=== PATIENT | female | born 1980 | race Caucasian/White ===

== ENCOUNTER 2017-09-04 21:56 | Inpatient (IN) | payer OTHER ==
[~2017-09-04] VITALS: Ht 152.4 cm; Wt 56.0 kg
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
[2017-09-04 22:48] LABS: ABSOLUTE BASOPHIL COUNT 0 /CUMM (0.0-0.2); ABSOLUTE EOSINOPHIL COUNT 0 /CUMM (0.0-0.7); ABSOLUTE GRANULOCYTE CT 4.5 /CUMM (1.4-6.5); ABSOLUTE LYMPH COUNT 1.9 /CUMM (1.2-3.4); ABSOLUTE MONOCYTE COUNT 0.4 /CUMM (0.10-0.60); BASOPHIL % 0.4 % (0.0-2.0); EOSINOPHIL % 0.3 % (0-5); HEMATOCRIT 37.9 % (37-47); MEAN CORPUSCULAR HGB 32.4 PG (27.0-31.0); MEAN CORPUSCULAR VOLUME 95.4 FL (81.0-99.0); MEAN PLATELET VOLUME 7.1 FL (7.4-10.4); PLATELET COUNT 351 /CUMM (130-400); RBC DISTRIBUTION WIDTH 13.1 % (11.5-14.5); RED BLOOD CELL CT 3.98 /CUMM (4.20-5.40)
[2017-09-04] MEDS ORDERED: FAMOTIDINE20 M1 PO (23:36)
[2017-09-04] MEDS ORDERED: CLONAZEPAM0.5 M2 PO (23:37)
[2017-09-04] MEDS ORDERED: SERTRALINE HCL100 MG PO (23:37)
[2017-09-04] MEDS ORDERED: LATUDA40 M1 PO (23:38)
[2017-09-04] MEDS ORDERED: MIRTAZAPINE15 M2 PO (23:39)
[2017-09-04] MEDS ORDERED: FLUTICASONE PRO16 GM NAS (23:40)
[2017-09-04] MEDS ORDERED: LORATADINE10 M1 PO (23:40)
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
[2017-09-05 17:00] VITALS: BP 129/76
[2017-09-05 18:26] VITALS: BP 129/76
[2017-09-05 19:54] VITALS: BP 128/83
[2017-09-05 19:57] VITALS: BP 128/83
[2017-09-06] VITALS (12 sets, daily range): BP systolic 107–148; BP diastolic 56–87
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
--- NOTE | 2017-09-06 13:25 | History & Physical ---
General Information and HPI MD Statement: I have seen and personally examined YAQUELIN HORVATH and documented this H&P. The patient is a 37 year old F who presented with a patient stated chief complaint of "it's my fault"]. Source of Information: patient, family, old records Exam Limitations: unable to give history History of Present Illness: 37-year-old female is depressed with suicidal ideations apparently has had 17 admissions in the past 2 years and was running out of her clonazepam and did not establish with an outpatient facility discharge in mid July. Her symptoms are back and she needs repeat restart of the medications Allergies/Medications Allergies: Coded Allergies: Sulfa (Sulfonamide Antibiotics) (RASH PER PT 09/04/17) aspirin (VOMIT 09/04/17) ciprofloxacin (From CIPRO) (VOMITTING PER PT 09/04/17) dicyclomine (From BENTYL) (MORE STOMACH CRAMPS PER PT 09/04/17) diphenhydramine (From BENADRYL) ("CRAWLING OUT OF SKIN" 09/04/17) esomeprazole (From NEXIUM) (STOMACH CRAMPS 09/04/17) hydromorphone (From DILAUDID) (VOMIT 09/04/17) hyoscyamine (STOMACH CRAMPS/VOMITING PER PT 09/04/17) metronidazole (From FLAGYL) (VOMITING PER PT 09/04/17) oxycodone (From PERCOCET) (VOMIT 09/04/17) pantoprazole (From PROTONIX) (STOMACH CRAMPS 09/04/17) promethazine (From PHENERGAN) ("CRAWLING OUT OF SKIN" 09/04/17) risperidone (From RISPERDAL) (ANAPHYLASIX 09/04/17) Home Med list Famotidine 20 MG TABLET 2 TAB PO DAILY ACID REFLUX (Reported) Fluticasone Propionate 50 MCG/ACTUATION SPRAY.SUSP 2 SPRAY MELVIN BID ALLERGIES (Reported) Loratadine 10 MG TABLET 1 TAB PO DAILY ALLERGIES (Reported) Lurasidone HCl (Latuda) 40 MG TABLET 1 TAB PO QHS DEPRESSION (Reported) Mirtazapine 15 MG TABLET 1 TAB PO QHS DEPRESSION (Reported) Sertraline HCl 100 MG TABLET 1 TAB PO DAILY DEPRESSION (Reported) Compliance With Home Meds: POOR Past History Travel History Traveled to [place] past 21 day No Medical History Neurological: NONE EENT: allergies, rhinitis Cardiovascular: NONE Respiratory: NONE Gastrointestinal: GERD, irritable bowel syndrome Hepatic: NONE Renal: OVERACTIVE BLADDER Musculoskeletal: NONE Psychiatric: anxiety, depression, BORDERLINE PERSONALITY PTSD Endocrine: NONE Blood Disorders: NONE Cancer(s): NONE 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 Home ETOH Use: heavy use Illicit Drug Use: denies illicit drug use Review of Systems Review of Systems Constitutional: Reports: see HPI. Exam & Diagnostic Data Last 24 Hrs of Vital Signs/I&O Vital Signs Date Time Temp Pulse Resp B/P B/P Pulse O2 O2 Flow FiO2 Mean Ox Delivery Rate 09/06 1224 75 120/80 09/06 1223 75 120/80 09/06 1005 82 127/78 09/06 0807 96.6 92 107/56 09/06 0741 96.6 92 107/76 09/06 0022 69 107/76 09/05 1957 96.1 70 128/83 09/05 1954 96.1 70 128/83 09/05 1826 86 129/76 09/05 1700 86 129/76 Intake & Output 09/06 1600 09/06 0800 09/06 0000 Intake Total Output Total Balance Patient 124 lb Weight Physical Exam General Appearance Alert, Oriented X3, Cooperative, No Acute Distress Skin No Rashes HEENT PERRLA, EOMI Neck Supple, No JVD, No thryomegaly, +2 Carotid Pulse wo Bruit Lymphatic Axillary nl, Cervical nl Cardiovascular Regular Rate, No Murmurs Lungs Clear to Auscultation, Normal Air Movement Abdomen Soft, No Tenderness, No Hepatospenomegaly Neurological Exam Findings: Normal Gait, Normal Speech, Strength at 5/5 X4 Ext, Normal Tone, Sensation Intact, Cranial Nerves 3-12 NL, Reflexes 2+ Cranial Nerves II through XII: Intact Extremities No Edema, Normal Pulses Vascular Normal Pulses, Pulses Symmetrical Last 24 Hrs of Labs/Mike: Laboratory Tests 09/04/17 2240: Anion Gap 18 H, Estimated GFR > 60, BUN/Creatinine Ratio 11.3, Glucose 87, Calcium 9.1, Total Bilirubin 0.6, AST 22, ALT 26, Alkaline Phosphatase 59, Total Protein 6.9, Albumin 5.0, Globulin 1.9, Albumin/Globulin Ratio 2.6 H, CBC w Diff NO MAN DIFF REQ, RBC 3.98 L, MCV 95.4, MCH 32.4 H, MCHC 34.0, RDW 13.1, MPV 7.1 L, Gran % 65.0, Lymphocytes % 28.0, Monocytes % 6.3, Eosinophils % 0.3, Basophils % 0.4, Absolute Granulocytes 4.5, Absolute Lymphocytes 1.9, Absolute Monocytes 0.4, Absolute Eosinophils 0, Absolute Basophils 0, Serum Alcohol 82.0 09/04/17 2217: Urine Opiates Screen < 100, Methadone Screen < 40, Barbiturate Screen < 60, Ur Phencyclidine Scrn < 6.00, Amphetamines Screen < 100, U Benzodiazepines Scrn < 85, Urine Cocaine Screen < 50, Urine Cannabis Screen < 5.00 Diagnostic Data ITS Data Unobtainable at this time Assessment/Plan As Ranked By This Provider Problem List: 1. Bipolar 1 disorder 2. Depression Miscellaneous Miscellaneous Documentation Attending Case Discussed With: Varun RITCHIE,Peter Primary Care Physician: Patient Has No Primary Care Dr Patient sees these Specialists Psychiatry Level of Patient Care: [facility] Consults Needed: Consulting Specialty: Psychiatry Consulting Physician: Katherine East MD Reason for Consult: DEPRESSION AND SUICIDAL IDEATION
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
[2017-09-07 07:53] VITALS: BP 108/69
[2017-09-07 08:00] VITALS: BP 108/67
--- NOTE | 2017-09-07 11:09 | CP SOUTH PROGRESS NOTE PSYCH ---
Psych (Inpt) Progress Note Progress Note Vital Signs Date Time Temp Pulse Resp B/P B/P O2 05/ 0800 96.6 72 108/67 09/07 0753 96.6 72 108/69 09/06 2128 83 146/72 09/068 83 16 148/87 09/06 2018 96.9 82 113/77 09/06 2016 96.9 82 113/77 09/06 1615 78 117/73 09/06 1612 78 117/73 Mental Status Examination: The patient did not show any objective evidence of withdrawal symptoms. She was alert and oriented to time, place, and person. No visible tremulousness, no sweating, no increase in psychomotor activity, and no abnormal movements or motor tics. Steady on her feet, Better personal hygiene today, Cooperative, Normal psychomotor activity, No abnormal behaviors Talkative with no pressure. She reported that her mood has improved yesterday, although she still feeling somewhat depressed and anxious She denied wishing and denied thoughts of suicide today. She denied violent thoughts and denied homicidal ideation, Denied hallucinations Denied feeling paranoid and there were no delusions during the interview She was coherent, there was no thought disorder And partial insight, showed good judgment in hypothetical situations but her life history suggests chronically impaired judgment and insight most likely due to ongoing alcohol consumption outside hospitals. She showed reasonable attention and concentration and ability for information processing There was no evidence of short-term memory impairment Assessment: A 37-year-old single White female with extensive history of inpatient psychiatric admissions for repeated self-harm or threats of self-harm as well as abuse of alcohol and benzodiazepines DSM 5 Diagnosis(es): Disruptive mood dysregulation disorder Alcohol use disorder Borderline personality disorder Sedative hypnotic use disorder Treatment Plan Update: Continue Remeron 15 mg at bedtime Increase Zoloft to 150 mg every morning D/C CIWA Continue Klonopin 0.5 mg twice daily continue Latuda 40 mg in the evenings continue Latuda 40 mg in the evenings
[2017-09-07 12:23] VITALS: BP 125/82
[2017-09-07 15:56] VITALS: BP 118/78
--- NOTE | 2017-09-07 16:47 | SOCIAL WORKER PROG NOTE PSYCH ---
Social Work Progress Note Progress Note This music writer met with patient. She stated, "I'm not suicidal" and also denied HI /AH/VH. Patient stated that the two writings that she composed on 09/04 and 09/03 (filed in her chart) were written while she was drinking and under the influence of alcohol. Patient was agreeable to a family meeting with her roommate, Noman Moses ([phone]). He was contacted and a phone meeting has been scheduled with him for 07/09/17 at 1pm. Per patient's inquiry about [facility] and about being able to attend their dual IOP while prescribed Klonopin, this music writer left a vm for Chelsi, material control supervisor at [facility] in [place] inquiring about any such policies at both the [place] and [place] locations.
[2017-09-07 19:33] VITALS: BP 132/78
[2017-09-08 07:42] VITALS: BP 115/46
[2017-09-08] MEDS ORDERED: IBUPROFEN600 M1 PO (11:33)
[2017-09-08] MEDS ORDERED: LATUDA40 M1 PO (11:33)
[2017-09-08] MEDS ORDERED: REMERON15 M2 PO (11:33)
--- NOTE | 2017-09-08 11:46 | SOCIAL WORKER PROG NOTE PSYCH ---
Social Work Progress Note Progress Note YAQUELIN HORVATH [id number] 1980 YAQUELIN HORVATH [id number] Pended Authorization # Client Authorization # Type of Request [id number] CONCURRENT Date of Admission/ Start of Services Requested From Submission Date 09/05/2017 09/08/2017 09/08/2017
[2017-09-08 12:12] VITALS: BP 116/64
--- NOTE | 2017-09-08 15:00 | CP SOUTH PROGRESS NOTE PSYCH ---
Psych (Inpt) Progress Note Progress Note Vital Signs Date Time Temp Pulse B/P B/P Pulse O2 FiO2 09/08 1212 88 116/64 09/08 0742 96.3 60 115/46 09/07 1933 98.7 89 132/78 Mental Status Examination: The patient did not show any objective evidence of withdrawal symptoms. was alert and oriented to time, place, and person. No visible tremulousness, no sweating, Exhibited normal psychomotor activity, and no abnormal movements or motor tics. was steady on her feet, Better personal hygiene today, cooperative, normal psychomotor activity, exhibited no abnormal behaviors was talkative with no pressure. She reported that her mood has improved yesterday, although she feeling somewhat depressed and anxious denied wishing and denied thoughts of suicide today. denied violent thoughts and denied homicidal ideation, Denied hallucinations Denied feeling paranoid and there were no delusions during the interview was coherent, there was no thought disorder Has chronically impaired judgment and insight most likely due to ongoing alcohol consumption outside hospitals. showed reasonable attention and concentration and ability for information processing Assessment: A 37-year-old single White female with extensive history of inpatient psychiatric admissions for repeated self-harm or threats of self-harm as well as abuse of alcohol and benzodiazepines Diagnosis(es): Disruptive mood dysregulation disorder Alcohol use disorder Borderline personality disorder Sedative hypnotic use disorder Treatment Plan Update: Continue Remeron 15 mg at bedtime Continue Zoloft 150 mg every morning Continue Klonopin 0.5 mg twice daily continue Latuda 40 mg in the evenings
[2017-09-08 15:38] VITALS: BP 120/86
--- NOTE | 2017-09-08 17:47 | SOCIAL WORKER PROG NOTE PSYCH ---
Social Work Progress Note Progress Note This pattern chart writer met with patient and her friend, Noman, for a "family meeting." Noman attended by phone. Noman is a roommate with the whom the patient has been living for the past 15 years. He stated that they were once engaged. Currently their relationship is friend/roommate. Noman expressed concerns that he had prior to her current inpatient admission that he would come home from work to find her from suicide or self injury. He stated that she had been experiencing a "spiraling depression" and had stopped eating and showering. Noman devised a plan should he find herself in which he would notify authorities and family. He stated that he does not have any legal standing, using an example of "common law marriage." Noman stated that the patient has demonstrated some aggression when under the influence. Noman stated that there is no alcohol or weapons in the home. A safety plan was discussed in which the patient agreed to return to the hospital and/or utilize crisis numbers. She was also informed that she would be provided with warm lines upon discharge as well. Patient was provided with a patient safety plan template, which she would work on this evening. Noman reported improvement and did not have any safety concerns at this time about the patient discharging and attending IOP. However, he stated that she has not always been compliant with treatment. Patient expressed some interest in individual therapy, but would like to wait until after completing IOP as "both would be too much." Patient and Noman were informed that this pattern chart writer received a call from Marilyn, timekeeping supervisor at [facility] in [place], stating that the patient may attend Dual IOP while prescribed Klonopin (or other BZDs), as long as she can provide documentation supporting that she is prescribed the medication (toxicology screens will be conducted). Patient was agreeable to this plan and appeared motivated to attend IOP at [facility] upon discharge. Regarding noncompliance, this pattern chart writer encouraged the patient to discuss barriers to treatment with treatment providers. Patient agreed. Patient will contact Noman tomorrow once discharge plans are determined and discussed with the treatment team. Per Carol at [facility]: Walk-in hours for intake are as follows: Mon-Thurs 10-4:30pm Fri 9-3:30pm
[2017-09-08 19:33] VITALS: BP 113/71
[2017-09-08 19:38] VITALS: BP 135/92
[2017-09-09 07:35] VITALS: BP 103/66
--- NOTE | 2017-09-09 09:11 | CP SOUTH PROGRESS NOTE PSYCH ---
Psych (Inpt) Progress Note Progress Note Vital Signs Date Time Temp Pulse B/P B/P Pulse O2 O2 Flow FiO2 09/09 0735 98.2 90 103/66 09/08 193 97.4 92 135/92 09/08 1932 97.9 79 113/71 09/08 1538 82 120/86 09/08 1212 88 116/64 The treatment team this morning discussed the patient's progress, treatment plan , and aftercare plans. The team included the social work staff, nursing staff, therapy staff, and psychiatrist. Mental Status Examination: The patient told the psychiatric social worker that she was thinking about suicide by overdose if released today. The patient seems to be invested in staying the weekend at least and maybe even longer. The patient was advocating for going back on her dose of Klonopin to 3 doses a day and her request was declined. The patient did not show any objective evidence of benzodiazepine withdrawal symptoms. In any case she was supposed to be on 2 doses a day at the time of her discharge from the from [facility] on August 18 but she claims that she misunderstood and she was taking 3 doses a day and that's why she ran out in early. The patient was alert and oriented to time, place, and person. No visible tremulousness, no sweating, The patient exhibited normal psychomotor activity, and no abnormal movements or motor tics. was steady on her feet, cooperative, no abnormal behaviors The patient was talkative with no pressure. She reported that her mood took a turn for the worse yesterday afternoon (she attributed that to increase in the Zoloft dose, she was she was advised that it may cause nausea or and loose stools but still she didn't want to continue on the 150 mg) the patient denied violent thoughts and denied homicidal ideation, denied hallucinations Denied feeling paranoid and there were no delusions during the interview The patient was coherent, there was no thought disorder, showed reasonable attention and concentration and ability for information processing Assessment: A 37-year-old single White female with extensive history of inpatient psychiatric admissions for repeated self-harm or threats of self-harm as well as abuse of alcohol and benzodiazepines She'll slated for discharge today but claims that her mood worsened yesterday afternoon and that she was having thoughts of suicide. The patient is invested in staying in the hospital longer. Diagnoses (Last Updated 08/11/2017): Disruptive Mood Dysregulation disorder Alcohol Use disorder Borderline Personality disorder Sedative-Hypnotic use disorder Treatment Plan Update: Continue Remeron 15 mg at bedtime Reduce Zoloft back to 100 mg every morning Continue Klonopin 0.5 mg twice daily continue Latuda 40 mg in the evenings Gabapentin 400 mg Q 2 hours PRN anxiety or insomnia or agitation
[2017-09-09 12:17] VITALS: BP 111/72
[2017-09-09 15:56] VITALS: BP 105/76
--- NOTE | 2017-09-09 16:35 | SOCIAL WORKER PROG NOTE PSYCH ---
Social Work Progress Note Progress Note This sign writer letterer or painter met with patient. She reported SI, "I've had a thought about overdosing." Patient identified plan to overdose on Tylenol and slot floor supervisor. She stated that she does not feel safe leaving the hospital today. Patient also complained of having panic, nausea and diarrhea yesterday, which she attributes to medications. She stated that these symptoms have resolved. Patient stated that she feels she has had good support from her peers on this unit. Patient stated that she is working on the safety plan worksheet and will include the crisis numbers and warm lines numbers given at discharge as well as the [facility] crisis number that she has stored in her phone. This sign writer letterer or painter received a call from Marilyn at [facility] in response to this sign writer letterer or painter's inquiry about medication appointments. Marilyn stated that they are scheduling out into December. This sign writer letterer or painter relayed the information to the patient who was agreeable to a referral to a provider while she waits for an appointment at [place]. She also stated that she would be willing to have bridge appointments through [facility].
[2017-09-09 19:48] VITALS: BP 123/78
[2017-09-10 08:25] VITALS: BP 106/60
[2017-09-10 12:11] VITALS: BP 103/65
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
[2017-09-10 15:58] VITALS: BP 118/67
[2017-09-10 19:50] VITALS: BP 117/78
[2017-09-11 08:33] VITALS: BP 95/59
[2017-09-11 12:28] VITALS: BP 110/61
--- NOTE | 2017-09-11 15:44 | CP SOUTH PROGRESS NOTE PSYCH ---
Psych (Inpt) Progress Note Progress Note Include the following elements, when applicable: Involvement in the active treatment of the patient with behavioral observations of the patient and the patient's response to the treatment. Review of the ongoing treatment process in the context of the treatment plan. Indication of how multi-disciplinary staff members are carrying out the treatment plan. Plans for future interventions and recommendations for revision of the treatment plan. Liaison with other physicians/providers. Progress Note: Case discussed with nurse. Nurse reports that the patient slept well. Described as attention-seeking and somatic. Blood pressure was 95/59. Denying suicidal ideation. Denying pain. Patient seen at 10:49 AM. Reports she is just having a lot of panic like she did yesterday. She seems to be medication-seeking for more Klonopin. Does not want Antabuse, giving the reason that she does not want another pill. States that she purposefully drank prior to admission to come here to get help. Mood is a little cranky. States she is PMSing and has PMDD. States she is scared, guessing that she is going tomorrow. Rates sad mood 5/10 and anxiety 7/10. Denies feeling hopeless or helpless. Feels worthless. Feels guilty with just all of the chaos that she allowed alcohol to cause in her life. Denies suicidal thoughts but states that suicidal thoughts come with panic attacks. Denies homicidal ideation. Denies auditory and visual hallucinations and paranoid ideation. Reports she had middle of the night awakening at 4:30 to urinate. Appetite is not what it was prior to admission. Energy is pretty up there because she has people around her. States that energy gets better as the morning progresses. Patient agrees to the addition of standing Neurontin 400 mg daily at 3 PM. She knows discharge is anticipated for tomorrow. IMPRESSION: Slow progress. Continue present treatment plan. Anticipate likely discharge tomorrow.
[2017-09-11 16:01] VITALS: BP 105/79
[2017-09-11 19:49] VITALS: BP 109/73
[2017-09-12 07:48] VITALS: BP 110/67
[2017-09-12 12:20] VITALS: BP 103/72
[2017-09-12 15:38] VITALS: BP 104/59
--- NOTE | 2017-09-12 16:36 | SOCIAL WORKER PROG NOTE PSYCH ---
Social Work Progress Note Progress Note This health science writer met with patient. Patient maintains that she would like an appointment [facility] OPS for a bridge appointment as a medication appointment at [place] is not available until December. She was informed that she would be provided with an intake appointment through [facility] prior to the psychiatrist appointment. Patient was agreeable to this. Patient stated that her mood is low due to not feeling well physically (sore throat). She discussed looking forward to going to [facility]'s IOP. Patient stated that she will contact them as she would like to inquire about how quickly she will begin IOP after the intake and confirm that she can seek her own medication appointments (outside [place]) until she is able to have an appointment in December. Patient was provided with the number to [facility]. Patient also stated that she plans to schedule an appointment with an individual therapist after completing IOP. She denied SI/HI/AH/VH. [facility] appointments: intake: 09/21/17, at 9:15am with Orin Servin LCSW psychiatrist: , 09/23/17, at 10:30am with Dr. Yost
--- NOTE | 2017-09-12 16:43 | CP SOUTH PROGRESS NOTE PSYCH ---
Psych (Inpt) Progress Note Progress Note Include the following elements, when applicable: Involvement in the active treatment of the patient with behavioral observations of the patient and the patient's response to the treatment. Review of the ongoing treatment process in the context of the treatment plan. Indication of how multi-disciplinary staff members are carrying out the treatment plan. Plans for future interventions and recommendations for revision of the treatment plan. Liaison with other physicians/providers. Progress Note: I discussed this patient's progress to date, current mental status, treatment process in the context of the treatment plan, and discharge planning with staff/ team in the daily morning inpatient team meeting. I also met with the patient myself in individual session. A total of 25 minutes was spent with the patient with more than 50% spent in counseling and/or coordination of care. SUBJECTIVE: "I have panic attacks once a day." OBJECTIVE: Current Medications Sig/Galo Start time Last Medication Dose Route Stop Time Status Admin Artificial Tears 2 GTT Q4 HRS NEEDED PRN 09/07 1015 AC 09/11 OPH 1329 Benzocaine/Menthol 1 OLGA Q2P PRN 09/12 1300 AC 09/12 PO 1441 Clonazepam 0.5 MG BID 09/06 2100 AC 09/12 PO 09/13 2059 0800 Famotidine 40 MG DAILY 09/06 0900 AC 09/12 PO 0758 Fluticasone 2 SPRAY BID 09/05 2100 AC 09/12 Propionate MELVIN 0800 Gabapentin 400 MG DAILY@1500 / 1500 AC 09/12 PO 1441 Gabapentin 400 MG Q2 HRS NEEDED PRN 09/06 1145 AC 09/09 PO 1522 Ibuprofen 600 MG Q4 HRS NEEDED PRN 09/08 1130 AC 09/09 PO 1248 Loratadine 10 MG DAILY 09/06 0900 AC 09/12 PO 0758 Lurasidone HCl 40 MG AT BEDTIME 09/05 2100 AC 09/11 PO 2051 Mirtazapine 15 MG AT BEDTIME 09/05 2100 AC 09/11 PO 2050 Ondansetron HCl 4 MG Q8P PRN 09/08 1845 AC 09/12 PO 1630 Sertraline HCl 125 MG 0800 09/13 0800 AC PO Sertraline HCl 25 MG ONCE ONE 09/12 1515 DC 09/12 PO 09/12 1516 1625 Sertraline HCl 100 MG 0809/10 0800 DC 09/12 PO 0758 Vital Signs Date Time Temp Pulse Resp B/P B/P Pulse O2 O2 Flow FiO2 Mean Ox Delivery Rate 09/12 1538 86 104/59 09/12 1220 94 103/72 09/12 0748 97.2 85 110/67 09/11 1949 99.1 86 109/73 ASSESSMENT: Patient presents as calm and cooperative, pleasant. Alert and oriented to person, place, time and situation. Patient reports continuing depression and anxiety, with occasional panic attacks. States that she is having a difficult time on her new lower dose of Klonopin 0.5 mg twice daily ( instead of 3 times daily). We discussed the risks, benefits, side effects of benzodiazepines, patient verbalized an understanding. We reviewed other ways of helping with depression and anxiety, and she has agreed to try sertraline 125 mg at night. She said she was unable to tolerate 150 mg, and so we decided on trialing this dose. Reports that she is sleeping well at night, after taking Remeron. Remeron is also helping to enhance her appetite, which she is pleased with. Depression:6-7/10; Anxiety:7-8/10 (with 10 the worst.) Denies suicidal ideation, homicidal ideation, auditory hallucinations, visual hallucinations, paranoid ideation. Patient denies plan or intent to harm herself. Patient states and also believes that she will not kill herself. Speech is well articulated, goal-directed, average in rate, volume and tone. The patient understands the risks/benefits/side effects of the medication and is agreeable to continue taking them. PLAN: Increase sertraline to 125 mg daily for continuing depression and anxiety. Continue with other current management as patient is improving. Continue to provide support and encouragement.
--- NOTE | 2017-09-12 18:37 | SOCIAL WORKER PROG NOTE PSYCH ---
Social Work Progress Note Progress Note Completed [facility] online review concurrent. Check [facility] for next review date.
[2017-09-12 20:07] VITALS: BP 115/68
[2017-09-13 07:38] VITALS: BP 104/64
[2017-09-13] MEDS ORDERED: GABAPENTIN400 M2 PO (11:28)
[2017-09-13] MEDS ORDERED: ZOLOFT50 M1 PO (11:28)
[2017-09-13] MEDS ORDERED: LATUDA40 M1 PO (11:28)
[2017-09-13] MEDS ORDERED: KLONOPIN0.5 M1 PO (11:28)
--- NOTE | 2017-09-13 11:48 | Patient Discharge Instructions ---
Psych Discharge Inst General Discharge Information Reason for Admission: Patient report of depression with suicidal ideation, reports recent cutting and overdose attempts. Psy Discharge Primary Diag+ Bipolar d/o unspecified Psy Discharge Secondary Diag+ PTSD; Alcohol use d/o; GERD; IBS; HPV Summary Tests/Major Procedures Lab Albumin/Globulin Ratio 2.6 % H 09/04/17 2240 Anion Gap 18 H 09/04/17 2240 Carbon Dioxide 20 mmol/L L 09/04/17 2240 Serum Alcohol 82.0 MG/DL 09/04/17 2240 Studies Pending at [place]: HgbA1c Lipid Panel Patient Instructions Contact Information Your Psychiatrist on [facility] was Jam RITCHIE,Farooq * If you are experiencing an emergency related to this hospitalization, please call [phone] to contact the treating psychiatrist or the psychiatrist-on- call. * To Request a copy of your medical records, please contact the Medical Records Department at [phone]. * To request results of studies pending at the time of discharge, please call [phone]. * Continue your Medications until directed to stop by your Healthcare provider. General Medication Information Please continue to take your new medications and your continued home medications , unless otherwise indicated on your discharge medication list, or unless directed by your MD or PURCHASING BUYER to stop them. Special Instructions Diet Regular Activity Normal Other Inst/Recommendations Take medications as prescribed. Follow up the medical appointments. - Tobacco Use Treatment Offered Post DC Medications Offered: Not Applicable Post DC Tobacco Treatment Plan: Not Applicable - EtOH/Drug Use D/O Treatment Offered Post DC Medications Offered: Ref Med EtOH/Drug Use D/O Post DC EtOH/SubAbuse [place] Plan: [facility] SubAbuse/Dual IOP Program Appt Date: 09/21/17 Program Appt Time: 914 Metabolic Screening () Not Applicable, patient not on a neuroleptic. OR ([x]) Patient on a neuroleptic(s) . Enter below results for Hemoglobin A1C, and lipid panel if obtained during the last 365 days. BMI: 24.100 Blood Pressure: 104/64 Laboratory Results From [facility] (If applicable): Lipid panel and HgbA1c pending. Advance Directives Does the Patient have Medical Advance Directives No/Refused further info Does Pt have Psychiatric Advance Directives? No/Refused further info Does Patient have a Designated Surrogate Decision Maker: No Information About Psychiatric Advance Directives Provided? Refused Discharge Plan Post Hospital Treatment Plan: Take medications as prescribed. Follow up at [facility], and [facility] for intake appointment, and bridging medication management appointment.
--- NOTE | 2017-09-13 11:57 | CP SOUTH PROGRESS NOTE PSYCH ---
See Addendum Psych (Inpt) Progress Note Progress Note Include the following elements, when applicable: Involvement in the active treatment of the patient with behavioral observations of the patient and the patient's response to the treatment. Review of the ongoing treatment process in the context of the treatment plan. Indication of how multi-disciplinary staff members are carrying out the treatment plan. Plans for future interventions and recommendations for revision of the treatment plan. Liaison with other physicians/providers. Progress Note: I discussed this patient's progress to date, current mental status, treatment process in the context of the treatment plan, and discharge planning with staff/ team in the daily morning inpatient team meeting. I also met with the patient myself in individual session. A total of 25 minutes was spent with the patient with more than 50% spent in counseling and/or coordination of care. SUBJECTIVE: "I feel like I could go home, be safe today." OBJECTIVE: Hgb A1c and lipid panel pending Current Medications Sig/Galo Start time Last Medication Dose Route Stop Time Status Admin Artificial Tears 2 GTT Q4 HRS NEEDED PRN 09/07 1015 AC 09/11 OPH 1329 Benzocaine/Menthol 1 OLGA Q2P PRN 09/12 1300 AC 09/12 PO 1840 Clonazepam 0.5 MG BID 09/06 2100 AC 09/13 PO 09/13 2059 0805 Famotidine 40 MG DAILY 09/06 0900 AC 09/13 PO 0802 Fluticasone 2 SPRAY BID 09/05 2100 AC 09/13 Propionate MELVIN 0807 Gabapentin 400 MG DAILY@1500 /06 1500 AC 09/12 PO 1441 Gabapentin 400 MG Q2 HRS NEEDED PRN 09/06 1145 AC 09/09 PO 1522 Ibuprofen 600 MG Q4 HRS NEEDED PRN 09/08 1130 AC 09/09 PO 1248 Loratadine 10 MG DAILY 09/06 0900 AC 09/13 PO 0802 Lurasidone HCl 40 MG AT BEDTIME 09/05 2100 AC 09/12 PO 2227 Mirtazapine 15 MG AT BEDTIME 09/05 2100 AC 09/12 PO 2052 Ondansetron HCl 4 MG .STK-MED ONE 09/12 1630 DC PO 09/12 1631 Ondansetron HCl 4 MG Q8P PRN 09/08 1845 AC 09/12 PO 1630 Sertraline HCl 125 MG 0800 09/13 0800 AC 09/13 PO 0802 Sertraline HCl 25 MG ONCE ONE 09/12 1515 DC 09/12 PO 09/12 1516 1625 Sertraline HCl 100 MG 0809/10 08 DC 09/12 PO 0758 Vital Signs Date Time Temp Pulse Resp B/P B/P Pulse O2 O2 Flow FiO2 Mean Ox Delivery Rate 09/13 737 97.6 80 104/64 09/12 2006 98.3 93 115/68 09/12 1538 86 104/59 09/12 1220 94 103/72 ASSESSMENT: I met the patient today along with addiction social worker Any. She presented this morning as calm, cooperative and pleasant. Patient states that she feels safe and ready for discharge home. She is tolerating well the increase in sertraline to 125 mg daily. Sleeping well at night with mirtazapine. Gabapentin helps with anxiety during the day. Tolerating decrease in Klonopin to 0.5 mg twice daily, without complaint, however with some discomfort. Depression:4/10; Anxiety:3/10 (with 10 the worst.) "My depression and anxiety have been pretty low, but I was crying last night." Denies suicidal ideation, homicidal ideation, auditory hallucinations, visual hallucinations, paranoid ideation. Patient states and also believes that she will not kill herself. She has completed a safety plan with the addiction social worker. States that her roommate is her protective factor. Sleep was interrupted last night because her roommate was snoring. States that her appetite and concentration are okay. Speech is well articulated, goal-directed, average in rate, volume and tone. The patient understands the risks/benefits/side effects of the medication and is agreeable to continue taking them. PLAN: 1. Anticipate discharge today. Patient calling her roommate, who has agreed to pick her up today after work. 2. Patient will attend [facility], and [facility] for medicine management bridging appointments. Continue with current management as patient is improving. Continue to provide support and encouragement.
--- NOTE | 2017-09-13 11:58 | DISCHARGE SUMMARY REPORT-PSYCH ---
Visit Information Visit Dates/Diagnosis' Admission Date: 09/05/17 Discharge Date: 09/13/17 Reason for Admission: Patient report of depression with suicidal ideation, reports recent cutting and overdose attempts. Psy Discharge Primary Diag: Bipolar d/o unspecified Psy Discharge Secondary Diag: PTSD; Alcohol use d/o; GERD; IBS; HPV Hospital Course Significant Lab Findings: Lab Albumin/Globulin Ratio 2.6 % H 09/04/17 2240 Anion Gap 18 H 09/04/17 2240 Carbon Dioxide 20 mmol/L L 09/04/17 2240 Serum Alcohol 82.0 MG/DL 09/04/17 2240 Course Consultations: Patient was seen for admission history and physical by Dr. Hasmukh Condon. Please see his H&P for additional information. Allergies: Coded Allergies: Sulfa (Sulfonamide Antibiotics) (RASH PER PT 09/04/17) aspirin (VOMIT 09/04/17) ciprofloxacin (From CIPRO) (VOMITTING PER PT 09/04/17) dicyclomine (From BENTYL) (MORE STOMACH CRAMPS PER PT 09/04/17) diphenhydramine (From BENADRYL) ("CRAWLING OUT OF SKIN" 09/04/17) esomeprazole (From NEXIUM) (STOMACH CRAMPS 09/04/17) hydromorphone (From DILAUDID) (VOMIT 09/04/17) hyoscyamine (STOMACH CRAMPS/VOMITING PER PT 09/04/17) metronidazole (From FLAGYL) (VOMITING PER PT 09/04/17) oxycodone (From PERCOCET) (VOMIT 09/04/17) pantoprazole (From PROTONIX) (STOMACH CRAMPS 09/04/17) promethazine (From PHENERGAN) ("CRAWLING OUT OF SKIN" 09/04/17) risperidone (From RISPERDAL) (ANAPHYLASIX 09/04/17) Hospital Course/TX Response: The patient was monitored on the unit for safety, depression, mood stability, suicidal ideation and intent to harm herself. She participated in multimodal treatments on the unit. She was medicated with Zoloft for depression, gabapentin for anxiety, Latuda for mood stability and depression, mirtazapine at bedtime for depression and for sleep. Clonazepam 0.5 mg was decreased from 3 times daily to 2 times daily. Today, the day of discharge, patient states "I feel like I could go home, be safe today." She presented this morning as calm, cooperative and pleasant. Patient states that she feels safe and ready for discharge home. She is tolerating well the increase in sertraline to 125 mg daily. Sleeping well at night with mirtazapine. Gabapentin helps with anxiety during the day. Tolerating decrease in Klonopin to 0.5 mg twice daily, without complaint, however with some discomfort. Depression:4/10; Anxiety:3/10 (with 10 the worst.) "My depression and anxiety have been pretty low, but I was crying last night." Denies suicidal ideation, homicidal ideation, auditory hallucinations, visual hallucinations, paranoid ideation. Patient states and also believes that she will not kill herself. She has completed a safety plan with the social organization professor. States that her ex-boyfriend/ housemate is her protective factor. Sleep was interrupted last night because her roommate was snoring. States that her appetite and concentration are okay. Speech is well articulated, goal-directed, average in rate, volume and tone. The patient understands the risks/benefits/side effects of the medication and is agreeable to continue taking them. Patient reports tolerating her medications well, without complaint. States that she feels ready and safe for discharge. Discharge HBIPS - Tobacco Use Treatment Offered Post DC Medications Offered: Not Applicable Post DC Tobacco Treatment Plan: Not Applicable - EtOH/Drug Use D/O Treatment Offered Post DC Medications Offered: Ref Med EtOH/Drug Use D/O Post DC EtOH/SubAbuse TX Plan: Other SubAbuse/Dual Pgm Program Appt Date: 09/14/17 Program Appt Time: 1000 Metabolic Screening - Screen if on a Neuroleptic Medication - Metabolic screening should include: - Blood Pressure, BMI, Glucose or Hgb A1c, & a - Lipid profile from within the past 365 days. Metabolic Screening () Not Applicable, patient not on a neuroleptic. OR ([x]) Patient on a neuroleptic(s) . Enter below results for Hemoglobin A1C, and lipid panel if obtained during the last 365 days. BMI: 24.100 Blood Pressure: 119/68 Laboratory Results From [facility] (If applicable): Lab Cholesterol 192 MG/DL 09/13/17 1206 Cholesterol/HDL Ratio 4 % 05/08/18 1206 HDL Cholesterol 45 mg/dL 09/13/17 1206 Hemoglobin A1c 4.6 % 09/13/17 1206 LDL Cholesterol, Calc 115 mg/dL 09/13/17 1206 Triglycerides 161 mg/dL H 09/13/17 1206 Discharge Instructions General Discharge Information Multiple Neuroleptics: (x) Not Applicable OR Document below three failed attempts at monotherapy, or a plan to taper to monotherapy, or augmentation of Clozapine. () Discharge Diet Regular Discharge Activity Normal DC Disposition: Patient is returning home. Referrals Ordered Referrals Provider Referral 09/14/17 For Groups: [[facility]] [address] [phone] Walk in hours to for an intake assessment are: Tuesday- 10am-4:30pm Tuesday 9am-3:30pm Patient will utilize walk in hours on 09/14/17, in interest of engaging in their IOP. Provider Referral 09/21/17 For Groups: [[facility]] [facility] [address] [place], [place] [phone] Intake appointment: 09/21/17, at 9:15am with Orin Servin LCSW Provider Referral 09/23/17 For Groups: [[facility]] [facility] [address] [place], [place] [phone] Medication appointment: , 09/23/17, at 10:30am with Dr. Egan Prescriptions Stop taking the following medications: Clonazepam (Clonazepam) 0.5 MG TABLET ORAL THREE TIMES DAILY as needed for ANXIETY Qty = 42 Sertraline HCl (Sertraline HCl) 100 MG TABLET ORAL DAILY Qty = 30 Continue taking these medications: Famotidine (Famotidine) 20 MG TABLET 2 Tablet ORAL DAILY Qty = 60 Comments: Last Taken:09/13/17 Time:801 Mirtazapine (Mirtazapine) 15 MG TABLET 1 Tablet ORAL TAKE AT BEDTIME Qty = 30 Comments: Last Taken:09/12/17 Time:2051 Fluticasone Propionate (Fluticasone Propionate) 50 MCG/ACTUATION SPRAY.SUSP 2 [place] In the nose TWICE DAILY Qty = 16 Comments: Last Taken:09/13/17 Time:0807 Loratadine (Loratadine) 10 MG TABLET 1 Tablet ORAL DAILY Qty = 30 Comments: Last Taken:09/13/17 Time:08 Lurasidone HCl (Latuda) 40 MG TABLET 1 Tablet ORAL TAKE AT BEDTIME Qty = 30 Comments: Last Taken:09/12/17 Time:2226 This prescription has been renewed Start taking the following new medications: Ibuprofen (Ibuprofen) 600 MG TABLET 600 Milligram ORAL EVERY 4 HOURS NEEDED as needed for low back and leg pain Qty = 60 No Refills Comments: Last Taken:09/09/17 Time:1248 Mirtazapine (Remeron) 15 MG TABLET 15 Milligram ORAL AT BEDTIME Qty = 30 No Refills Comments: Last Taken:09/13/17 Time:205 Clonazepam (Klonopin) 0.5 MG TABLET 0.5 Milligram ORAL TWICE DAILY Qty = 22 No Refills Comments: Last Taken:09/13/17 Time:0805 Gabapentin (Gabapentin) 400 MG CAPSULE 400 Milligram ORAL DAILY Qty = 14 No Refills Comments: Last Taken:09/13/17 Time:1446 Sertraline HCl (Zoloft) 50 MG TABLET 125 Milligram ORAL DAILY Qty = 35 No Refills Comments: Last Taken:09/13/17 Time:08 Lurasidone HCl (Latuda) 40 MG TABLET 40 Milligram ORAL AT BEDTIME Qty = 14 No Refills Comments: Last Taken:09/12/17 Time:2226 Other Inst/Recommendations Take medications as prescribed. Follow up the medical appointments. Studies Pending at Discharge None Copies To: POLLO EGAN MD
[2017-09-13 12:20] VITALS: BP 106/64
[2017-09-13 12:23] VITALS: BP 106/64
[2017-09-13 15:33] VITALS: BP 119/68
--- NOTE | 2017-09-13 18:05 | SOCIAL WORKER PROG NOTE PSYCH ---
Social Work Progress Note Progress Note Mariano Murphy APRN and this ad copy writer met with the patient. Patient stated that she was agreeable to discharge today and plans to go to [facility] in [place] tomorrow to engage in IOP for substance abuse and psychiatric treatment. Patient stated that she called [facility] and learned that she would be able to start IOP within about a week of completing the intake. Patient was also informed of appointments scheduled with [facility] for medication management due to [facility] not having any med appointments available until December. She stated that she spoke with [facility] about this as well and that she would be able to see a provider outside of [facility] while she waits for an appointment. Patient stated that she may speak with Dr. Yost about continuing with [facility] beyond December if she feels it is a good fit. Patient described her depression at a 4/10, anxiety a 3-4/10 ("pretty low") and denied SI/HI/AH/VH. She identified a safety plan in which she would "call my roommate" and utilize the crisis numbers and warm lines that will be provided at discharge. Patient also created a patient safety plan template which was filed in her chart. Patient stated that she struggled with sleep last night due to her roommate snoring, however, typically sleeps without much difficult, about 7 hours. Patient reported a good appetite and good concentration. She states that she feels safe to discharge today. Medications were reviewed with Mariano Murphy. Patient stated that she would call her roommate who has agreed to provide a ride home from the hospital today. Faxed Referral(s) 1 Referred To: [facility] Transition of Care Documents sent: Health Summary Faxed to: [facility] Fax #: [phone] Faxed by: Vinod Deleon LCSW Date faxed: 09/13/17 Time Faxed: [phone] Faxed Referral(s) 2 Referred To: [facility] Transition of Care Documents sent: Health Summary Faxed to: [facility] Fax #: [phone] Faxed by: Vinod Deleon LCSW Date faxed: 09/13/17 Time Faxed: [phone]
--- NOTE | 2017-09-14 17:30 | SOCIAL WORKER PROG NOTE PSYCH ---
Social Work Progress Note Progress Note Determination Status: DISCHARGE COMPLETED Thank you. You have completed your discharge for this episode of care. Member Name Member ID Member Subscriber Name Subscriber ID YAQUELIN AGOSTONE [id number] YAQUELIN Dane YULIET [id number] Related Authorization # Related Client Authorization # Discharge # Discharge Date [id number] 09/14/2017 Level of Service Type of Service Level Of Care Type of Care IP - INPATIENT/HLOC P - MENTAL HEALTH I - INPATIENT CIP - INPATIENT HOSPITAL - INPATIENT HOSPITAL Provider Name & Address Provider ID Provider Alternate ID NOVA CORTEZO [id number]
== END 2017-09-13 16:19 | DRG 753 ==
LOC: ERH 21:56 → ERHI 09-05 12:35 → CP SOUTH 09-05 12:35 → ENTRNSPT 09-05 16:01 → CP SOUTH 09-05 16:13 → EDTRNSPTSTS 09-05 16:16 → EDTRNSPT 09-05 16:16 → CMPTRNSPT 09-05 16:25 → ENRESERV 09-05 23:59 → CP SOUTH 09-06 08:20
PROVIDERS: Nurse Practitioner Psychiatric/Mental Health; Pediatrics
DX: F31.9 Bipolar disorder, unspecified (principal); F43.10 Post-traumatic stress disorder, unspecified; K21.9 Gastro-esophageal reflux disease without esophagitis; F10.10 Alcohol abuse, uncomplicated; K58.9 Irritable bowel syndrome, unspecified
CPT/HCPCS: 80307; G0480; J3101

== ENCOUNTER 2017-10-14 00:19 | Inpatient (IN) | payer OTHER ==
[~2017-10-14] VITALS: Ht 154.9 cm; Wt 56.5 kg
[~2017-10-14 00:19] MED LIST: CLONAZEPAM0.5 M2 PO; FAMOTIDINE20 M1 PO; FLUTICASONE PRO16 GM NAS; GABAPENTIN400 M2 PO; IBUPROFEN600 M1 PO; KLONOPIN0.5 M1 PO; LATUDA40 M1 PO; LORATADINE10 M1 PO; MIRTAZAPINE15 M2 PO; REMERON15 M2 PO; SERTRALINE HCL100 MG PO; ZOLOFT50 M1 PO
--- NOTE | 2017-10-14 02:27 | ED PSYCHIATRIC COMPLAINT ---
History of Present Illness General Chief Complaint: Psychiatric Related Complaint Stated Complaint: +SI,SELF HARMING,"SURRENDERING HERSELF TO OUR CARE Source: patient, old records, friend Exam Limitations: no limitations Vital Signs & Intake/Output Vital Signs & Intake/Output Vital Signs Date Time Temp Pulse Resp B/P B/P Pulse O2 O2 Flow FiO2 Mean Ox Delivery Rate 10/14 0137 97.8 88 18 111/78 98 Room Air Allergies Coded Allergies: Sulfa (Sulfonamide Antibiotics) (RASH PER PT 09/04/17) aspirin (VOMIT 09/04/17) ciprofloxacin (From CIPRO) (VOMITTING PER PT 09/04/17) dicyclomine (From BENTYL) (MORE STOMACH CRAMPS PER PT 09/04/17) diphenhydramine (From BENADRYL) ("CRAWLING OUT OF SKIN" 09/04/17) esomeprazole (From NEXIUM) (STOMACH CRAMPS 09/04/17) hydromorphone (From DILAUDID) (VOMIT 09/04/17) hyoscyamine (STOMACH CRAMPS/VOMITING PER PT 09/04/17) metronidazole (From FLAGYL) (VOMITING PER PT 09/04/17) oxycodone (From PERCOCET) (VOMIT 09/04/17) pantoprazole (From PROTONIX) (STOMACH CRAMPS 09/04/17) promethazine (From PHENERGAN) ("CRAWLING OUT OF SKIN" 09/04/17) risperidone (From RISPERDAL) (ANAPHYLASIX 09/04/17) Reconcile Medications Clonazepam (Klonopin) 0.5 MG TABLET 0.5 MG PO BID ANXIETY Famotidine 20 MG TABLET 2 TAB PO DAILY ACID REFLUX (Reported) Fluticasone Propionate 50 MCG/ACTUATION SPRAY.SUSP 2 SPRAY MELVIN BID ALLERGIES (Reported) Gabapentin 400 MG CAPSULE 400 MG PO DAILY@1500 ANXIETY Ibuprofen 600 MG TABLET 600 MG PO Q4 HRS NEEDED PRN low back and leg pain Loratadine 10 MG TABLET 1 TAB PO DAILY ALLERGIES (Reported) Lurasidone HCl (Latuda) 40 MG TABLET 1 TAB PO QHS DEPRESSION Lurasidone HCl (Latuda) 40 MG TABLET 40 MG PO AT BEDTIME MOOD STABILITY Mirtazapine 15 MG TABLET 1 TAB PO QHS DEPRESSION (Reported) Mirtazapine (Remeron) 15 MG TABLET 15 MG PO AT BEDTIME depression Sertraline HCl (Zoloft) 50 MG TABLET 125 MG PO DAILY DEPRESSION Triage Note: TRIAGE: PATIENT TO ER FROM HOME REPORTING "PAST 2 WEEKS HAVE BEEN DRINKING EVERY DAY, CUTTING ARMS, SLEEPING ALL DAY LONG, WANT TO HARM SELF BUT DON'T WANT TO KILL MYSELF TOO MANY REASONS TO LIVE." -HI/ CALM AND COOPERATIVE. STATES "I'M A LITTLE BUZZED." ALERT AND ORIENTED X3. NOTED W/ SUPERFICIAL SCRATCHES TO L FOREARM, NO ACTIVE BLEEDING. Triage Nurses Notes Reviewed? yes Onset: Last week Duration: week(s):, constant, continues in ED, getting worse Timing: recent history Severity: severe Associated Symptoms: anxiety, impaired concentration, insomnia, suicidal ideation LMP (ages 10-50): unknown : No Patient currently breastfeeds: No HPI: 2 weeks prior to admission patient has been on a drinking binge with increased depression decreased hygiene anorexia insomnia feeling worthless considering suicide. She has abraded her left forearm. She denies fever chills nausea vomiting diarrhea abdominal pain chest pain shortness of breath headache dysuria rash bleeding. Past History Travel History Traveled to [place] past 21 day No Medical History Any Pertinent Medical History? 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 No Review of Systems Review of Systems Constitutional: Reports: no symptoms. EENTM: Reports: no symptoms. Respiratory: Reports: no symptoms. Cardiovascular: Reports: no symptoms. GI: Reports: no symptoms. Genitourinary: Reports: no symptoms. Musculoskeletal: Reports: no symptoms. Skin: Reports: no symptoms. Neurological/Psychological: Reports: see HPI, anxiety, depressed, emotional problems. Hematologic/Endocrine: Reports: no symptoms. Immunologic/Allergic: Reports: no symptoms. All Other Systems: Reviewed and Negative Physical Exam Physical Exam General Appearance: well developed/nourished, alert, awake, anxious, severe distress Head: atraumatic, normal appearance Eyes: Bilateral: normal appearance, PERRL, EOMI. 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 yes 2 Previous Attempts/Psych Care yes 1 Excessive Ethanol/Drug Use? yes 1 Rational Thinking Loss? yes 2 Single//? yes 1 Social Support? has support 0 Stated Future Intent? yes 2 Total 9 SAD PERSONS Done? yes CAGE (2/more=possible [place] CAGE (2/more=possible [place] Response Value Cut Down? yes 1 Annoyed? yes 1 Guilty? yes 1 Eye Cnc Technician? yes 1 Total 4 Progress Differential Diagnosis: drug intoxication, drug overdose, drug withdrawal, electrolyte abnormality, hypoglycemia Plan of Care: Orders Procedure Date/time Status Regular Diet 10/14 B Active Continuous Observation Monitor 10/14 0540 Active Restraint- Discontinue 10/14 0158 Active Restraint- Behavioral (Order) 10/14 015 Active Continuous Observation Monitor 10/14 014 Active CIWA 10/14 014 Active ED CRISIS PSYCH CONSULT 10/14 141 Active URINE 10/14 34 Complete URINE DRUG SCREEN FOR ER ONLY 10/14 34 Complete ETHANOL 10/14 34 Complete COMPREHENSIVE METABOLIC PANEL 10/14 34 Complete CBC WITHOUT DIFFERENTIAL 10/14 34 Complete Laboratory Tests 10/14/17 0225: Anion Gap 14, Estimated GFR > 60, BUN/Creatinine Ratio 18.6, Glucose 91, Calcium 8.7, Total Bilirubin 0.7, AST 23, ALT 20, Alkaline Phosphatase 83, Total Protein 6.6, Albumin 4.4, Globulin 2.2, Albumin/Globulin Ratio 2.0, CBC w Diff NO MAN DIFF REQ, RBC 3.95 L, MCV 95.0, MCH 33.5 H, MCHC 35.2, RDW 13.2, MPV 7.0 L, Gran % 53.5, Lymphocytes % 37.5, Monocytes % 7.3, Eosinophils % 1.3, Basophils % 0.4, Absolute Granulocytes 3.7, Absolute Lymphocytes 2.6, Absolute Monocytes 0.5 , Absolute Eosinophils 0.1, Absolute Basophils 0, Serum Alcohol 164.0 10/14/17 0036: Urine Opiates Screen < 100, Methadone Screen 43, Barbiturate Screen < 60, Ur Phencyclidine Scrn < 6.00, Amphetamines Screen < 100, U Benzodiazepines Scrn < 85, Urine Cocaine Screen < 50, Urine Cannabis Screen < 5.00, Urine Test NEGATIVE Hand-Off Endorsed To: Laura RITCHIE,Cody Bill Endorsed Time: 0700 Pending: consult Comments: Patient became agitated when her roommate was leaving threatening with violent behavior. Chemical restraint used for patient and staff safety. Departure Departure Disposition: STILL A PATIENT Condition: Fair Clinical Impression Primary Impression: Bipolar disorder current episode depressed Secondary Impressions: Alcohol intoxication delirium Referrals: Patient Has No Primary Care Dr (PCP/Family) Departure Forms: General Discharge Information
[2017-10-14 02:35] LABS: ABSOLUTE BASOPHIL COUNT 0 /CUMM (0.0-0.2); ABSOLUTE EOSINOPHIL COUNT 0.1 /CUMM (0.0-0.7); ABSOLUTE GRANULOCYTE CT 3.7 /CUMM (1.4-6.5); ABSOLUTE LYMPH COUNT 2.6 /CUMM (1.2-3.4); ABSOLUTE MONOCYTE COUNT 0.5 /CUMM (0.10-0.60); BASOPHIL % 0.4 % (0.0-2.0); EOSINOPHIL % 1.3 % (0-5); GRANULOCYTE % 53.5 % (42.2-75.2); HEMATOCRIT 37.6 % (37-47); MEAN CORPUSCULAR HGB 33.5 PG (27.0-31.0); MEAN CORPUSCULAR HGB CONC 35.2 G/DL (33.0-37.0); PLATELET COUNT 310 /CUMM (130-400); RBC DISTRIBUTION WIDTH 13.2 % (11.5-14.5); RED BLOOD CELL CT 3.95 /CUMM (4.20-5.40); WHITE BLOOD CELL COUNT 6.9 /CUMM (4.8-10.8)
[2017-10-14 07:00] VITALS: BP 97/56
[2017-10-14 09:33] VITALS: BP 104/69
[2017-10-14 11:42] VITALS: BP 106/57
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
--- NOTE | 2017-10-14 16:52 | IOP DIAG ASSESSMENT ---
Psych (IOP) Diag Assessment Allergies Coded Allergies: Sulfa (Sulfonamide Antibiotics) (RASH PER PT 09/04/17) aspirin (VOMIT 09/04/17) ciprofloxacin (From CIPRO) (VOMITTING PER PT 09/04/17) dicyclomine (From BENTYL) (MORE STOMACH CRAMPS PER PT 09/04/17) diphenhydramine (From BENADRYL) ("CRAWLING OUT OF SKIN" 09/04/17) esomeprazole (From NEXIUM) (STOMACH CRAMPS 09/04/17) hydromorphone (From DILAUDID) (VOMIT 09/04/17) hyoscyamine (STOMACH CRAMPS/VOMITING PER PT 09/04/17) metronidazole (From FLAGYL) (VOMITING PER PT 09/04/17) oxycodone (From PERCOCET) (VOMIT 09/04/17) pantoprazole (From PROTONIX) (STOMACH CRAMPS 09/04/17) promethazine (From PHENERGAN) ("CRAWLING OUT OF SKIN" 09/04/17) risperidone (From RISPERDAL) (ANAPHYLASIX 09/04/17) DSM5/PS Stressors/Medical Prob Diagnosis' (DSM 5, Stressors, Medical): F33.2 Major Depressive Disorder, Severe F10.20 Alcohol Use Disorder, Severe F43.10 PTSD R/O Borderline Personality Disorder relationship conflict unemployed Current GAF: 20 Comments: None
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
--- NOTE | 2017-10-14 19:50 | Admission Certification ---
Admission Certification Certification Statement - As attending physician, I certify that at the time of - admission, based on clinical presentation, severity of - symptoms, need for further diagnostic testing and - therapeutic interventions, and risk of adverse outcomes - without in-hospital treatment, in my clinical assessment, - this patient requires an acute hospital stay for a minimum - of two nights or longer. I have also considered psychsocial - factors such as support system, advanced age, financial - issues, cognitive issues, and failed out-patient treatments, - past re-admission history, safety of patient, and lack of - compliance as applicable. Specific rationale supporting this admission is: Depression, alcohol use disorder.
--- NOTE | 2017-10-14 19:54 | History & Physical ---
General Information and HPI MD Statement: I have seen and personally examined YAQUELIN HORVATH and documented this H&P. The patient is a 37 year old F who presented with a patient stated chief complaint of [depression, alcohol use disorder]. Source of Information: patient Exam Limitations: no limitations History of Present Illness: 37 yo F with h/o anxiety, depression, seasonal allergies, GERD IBS, borderline personality, PTSD, is admitted to Inpatient Psychiatry for worsening depression, alcohol abuse/ binge drinking and suicidal ideation with attempt by cutting her arm. She reports decreased appetite, energy and motivation. Please refer to Psych H and P for full details. She reports drinking 3 large beers and 5-6 nips of Vodka daily. She denies previous alcohol detox or withdrawal/ DT's. She was most recently admitted (August 2017) for depression. She currently denies chest pain, palpitations, lightheadedness, dyspnea, vomiting or abdominal pain. She does report some nausea but attributes it to her ongoing menses. She is on day 5 of her periods. No urinary symptoms, constipation or diarrhea. She is anxious about her detox. Allergies/Medications Allergies: Coded Allergies: Sulfa (Sulfonamide Antibiotics) (RASH PER PT 09/04/17) aspirin (VOMIT 09/04/17) ciprofloxacin (From CIPRO) (VOMITTING PER PT 09/04/17) dicyclomine (From BENTYL) (MORE STOMACH CRAMPS PER PT 09/04/17) diphenhydramine (From BENADRYL) ("CRAWLING OUT OF SKIN" 09/04/17) esomeprazole (From NEXIUM) (STOMACH CRAMPS 09/04/17) hydromorphone (From DILAUDID) (VOMIT 09/04/17) hyoscyamine (STOMACH CRAMPS/VOMITING PER PT 09/04/17) metronidazole (From FLAGYL) (VOMITING PER PT 09/04/17) oxycodone (From PERCOCET) (VOMIT 09/04/17) pantoprazole (From PROTONIX) (STOMACH CRAMPS 09/04/17) promethazine (From PHENERGAN) ("CRAWLING OUT OF SKIN" 09/04/17) risperidone (From RISPERDAL) (ANAPHYLASIX 09/04/17) Home Med list Clonazepam (Klonopin) 0.5 MG TABLET 0.5 MG PO BID ANXIETY Famotidine 20 MG TABLET 2 TAB PO DAILY ACID REFLUX (Reported) Fluticasone Propionate 50 MCG/ACTUATION SPRAY.SUSP 2 SPRAY MELVIN BID ALLERGIES (Reported) Gabapentin 400 MG CAPSULE 400 MG PO DAILY@1500 ANXIETY Loratadine 10 MG TABLET 1 TAB PO DAILY ALLERGIES (Reported) Lurasidone HCl (Latuda) 40 MG TABLET 1 TAB PO QHS DEPRESSION Lurasidone HCl (Latuda) 40 MG TABLET 40 MG PO AT BEDTIME MOOD STABILITY Mirtazapine (Remeron) 15 MG TABLET 15 MG PO AT BEDTIME depression Sertraline HCl (Zoloft) 50 MG TABLET 125 MG PO DAILY DEPRESSION Compliance With Home Meds: FAIR Past History Travel History Traveled to [place] past 21 day No Medical History Neurological: NONE EENT: allergies, rhinitis Cardiovascular: NONE Respiratory: NONE Gastrointestinal: GERD, irritable bowel syndrome Hepatic: NONE Renal: OVERACTIVE BLADDER Musculoskeletal: NONE Psychiatric: anxiety, depression, BORDERLINE PERSONALITY PTSD Endocrine: NONE Blood Disorders: NONE Cancer(s): NONE [employer] HE[employer] 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 Psychosocial History Where do you live? Home Who Do You Live With? self Services at Home: None Primary Language: Turkish Smoking Status: Never Smoked ETOH Use: heavy use Illicit Drug Use: denies illicit drug use Functional Ability ADLs Independent: dressing, eating, toileting, bathing. Ambulation: independent IADLs Independent: telephone, transportation, medication admin. Employment History Employment Unemployed Profession/Employer Has not worked for over 5 years Review of Systems Review of Systems Constitutional: Denies: chills, fever, malaise, weakness. EENTM: Reports: no symptoms. Cardiovascular: Denies: chest pain, edema, palpitations, syncope. Respiratory: Denies: cough, orthopnea, short of breath, sputum production, wheezing. GI: Reports: nausea. Denies: abdominal pain, constipation, diarrhea, vomiting. Genitourinary: Denies: dysuria, frequency, hematuria. Musculoskeletal: Reports: no symptoms. Neurological/Psychological: Reports: see HPI. All Other Systems: Reviewed and Negative Date of LMP: 10/10/17 Exam & Diagnostic Data Last 24 Hrs of Vital Signs/I&O Vital Signs Date Time Temp Pulse Resp B/P B/P Pulse O2 O2 Flow FiO2 Mean Ox Delivery Rate 10/14 1858 99.2 95 18 111/70 98 Room Air 06/08 1655 Room Air / 1655 98.8 101 18 110/68 98 Room Air 06/08 1456 99.6 85 18 126/70 98 06/08 1208 Room Air / 1144 98.2 92 18 106/57 99 Room Air 06/08 1142 98.6 92 18 106/57 06/08 0933 97.4 100 18 104/69 06/08 0932 97.4 100 18 104/69 97 Room Air 06/08 0700 97.9 78 18 97/56 06/08 0654 97.9 78 18 97/56 96 06/08 0137 97.8 88 18 111/78 98 Room Air Intake & Output / 1600 06/08 0800 06/08 0000 Intake Total Output Total Balance Patient 127 lb Weight Weight Reported by Patient Measurement Method Physical Exam General Appearance Alert, Oriented X3, Cooperative, No Acute Distress Skin No Breakdown, No Significant Lesion HEENT Atraumatic, EOMI, Mucous Membr. moist/pink Neck Supple Cardiovascular Regular Rate, Normal S1, Normal S2, No Murmurs Lungs Clear to Auscultation, Normal Air Movement Abdomen Normal Bowel Sounds, Soft, No Tenderness Neurological Exam Findings: Normal Gait, Normal Speech, Strength at 5/5 X4 Ext, Sensation Intact, Cranial Nerves 3-12 NL, Reflexes 2+ Cranial Nerves II through XII: Intact Extremities No Edema, Normal Pulses, No Tenderness/Swelling Diagnostic Data EKG Results -- CXR Results -- Assessment/Plan Assessment: 37 yo F with h/o anxiety, depression, seasonal allergies, GERD IBS, borderline personality, PTSD, is admitted to Inpatient Psychiatry for worsening depression, alcohol abuse/ binge drinking and suicidal ideation with attempt by cutting her arm. - Continue management as per Psych team for alcohol detox protocol and depression. - Would resume her flonase and claritin for allergies. - Continue pepcid for GERD. - Can consider adding Ibuprofen as needed for pain/ abdominal cramps. DVT ppx low risk, early ambulation. As Ranked By This Provider Problem List: 1. Alcohol intoxication 2. Depression Miscellaneous Miscellaneous Documentation Attending Case Discussed With: Mary Cox MD Primary Care Physician: Patient Has No Primary Care Dr Patient sees these Specialists -- Level of Patient Care: JEANNIE Carrion MD Review Statement Attending Statement Attending Statement: examined this patient, discuss w/resident/PA/[employer]IN CAN FEEDER As Ranked By This Provider Problem List: 1. Alcohol intoxication 2. Depression Miscellaneous Miscellaneous Documentation Attending Case Discussed With: Mary Cox MD Primary Care Physician: Patient Has No Primary Care Dr Patient sees these Specialists -- Level of Patient Care: JEANNIE Carrion MD Review Statement Attending Statement Sheyla RITCHIE Statement: examined this patient, discuss w/resident/PA/[employer] CAN FEEDER
[2017-10-14 20:15] VITALS: BP 112/76
[2017-10-14 20:27] VITALS: BP 112/76
[2017-10-15] VITALS (8 sets, daily range): BP systolic 111–124; BP diastolic 72–78
--- NOTE | 2017-10-15 11:55 | CPS PROVIDER INIT ASMT PSYCH ---
Psychiatric Admission Securities Dealer's Note Reviewed: Yes Patient Seen and Examined: Yes Identifying Information: [id number] Chief Complaint: "my bf makes me drink" Reaction to Hospitalization: positive History of Present Illness Onset of Illness: two weeks Circumstances Leading to Admission: worsening discord with bf Problem(s) Justifying Need for Admission: danger to self Other HPI: Pt notes that she has been drinking more as a result of interpersonal discord with her bf. She is now upset that he has not returned one of her 10 calls in the past 24 hrs. SHe notes chronic issues around communication. Pt has been drinking, 6nips and 6 beers daily over 2wks. Notes increasing SI and thougths of self harm which lead to her cutting herself. She denies manic, psychotic or TRS though does have hx of PTSD. Past Psychiatric History Past Diagnosis(es)- if any: MDD Panic PTSD AUD Borderline personality disorder Past Precipitating Factors- if any: interpersonal discord unstable sense of self - Include inpatient and outpatient treatment Treatment History: seen as outpatient History of Suicide Attempts or Gestures x3, most recent OD in July 2017 Substance Abuse History: Tobacco: denied Alcohol: increased over past 4-5 months, 6 beers and 6 nips, denied complicated wd Other: denied, tried mj once Allergies: Coded Allergies: Sulfa (Sulfonamide Antibiotics) (RASH PER PT 09/04/17) aspirin (VOMIT 09/04/17) ciprofloxacin (From CIPRO) (VOMITTING PER PT 09/04/17) dicyclomine (From BENTYL) (MORE STOMACH CRAMPS PER PT 09/04/17) diphenhydramine (From BENADRYL) ("CRAWLING OUT OF SKIN" 09/04/17) esomeprazole (From NEXIUM) (STOMACH CRAMPS 09/04/17) hydromorphone (From DILAUDID) (VOMIT 09/04/17) hyoscyamine (STOMACH CRAMPS/VOMITING PER PT 09/04/17) metronidazole (From FLAGYL) (VOMITING PER PT 09/04/17) oxycodone (From PERCOCET) (VOMIT 09/04/17) pantoprazole (From PROTONIX) (STOMACH CRAMPS 09/04/17) promethazine (From PHENERGAN) ("CRAWLING OUT OF SKIN" 09/04/17) risperidone (From RISPERDAL) (ANAPHYLASIX 09/04/17) Home Med List: Latuda Mirtazapine - Include any medical condition(s) that may - impact the patient's recovery/remission Past Medical History: see H&P Past History Medical History Neurological: NONE EENT: allergies, rhinitis Cardiovascular: NONE Respiratory: NONE Gastrointestinal: GERD, irritable bowel syndrome Hepatic: NONE Renal: OVERACTIVE BLADDER Musculoskeletal: NONE Psychiatric: anxiety, depression, BORDERLINE PERSONALITY PTSD Endocrine: NONE Blood Disorders: NONE Cancer(s): NONE 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: bacterial vaginitis, HPV History of MRSA: No History of VRE: No History of CDIFF: No Isolation History: Standard Surgical History Surgical History: unknown Psychiatric Family/Social Hx Family History Psychiatric Illness: anxiety and depression in all family Substance Use: AUD maternal Suicides: denied Social History Living Situation: lives with [facility] Significant Relationships (family/friends): roomate Education: two years of college Vocation/Occupation: unemployed, no SSD, claim denied Legal: denied recent Healthly Behaviors Screening Tobacco Screening Tobacco Use from ED Docu: Never used - If tobacco counseling indicated - the following topics are required. - #1 Recognizing dangerous situations. - #2 Coping Skills. - #3 Basic information about quitting. Status of Tobacco Cessation Counseling: Not Applicable Cessation Med Status Not Applicable Alcohol Screening - ETOH screen POS if BAL >=80 or Audit-C>= M4/F3 Audit-C Score from Diag Assess: 10 Blood Alcohol Level: Laboratory Tests 10/14 0225 Toxicology Serum Alcohol (<10 MG/DL) 164.0 Alcohol Use Screening Results: Pos per Audit C &/or BAL - If ETOH counseling indicated - the following topics are required. - #1 Express concern about the patient's - drinking at unhealthy levels, include informing - of national norms for moderate drinking: - men <= 14 drinks/week, max 4 drinks/occasion - women <= 7 drinks/week, max 3 drinks/occasion - #2 Providing feedback, including linking alcohol to - negative physical effects (liver injury, hypertension) - negative emotional effects (relationship problems and - depression) - negative occupational consequences (reduced work - performance) - #3 Advising the patient to abstain from alcohol or - to drink below national norms for moderate drinking - (as listed above). Status of ETOH Use Counseling: #1, #2 AND #3 Completed. Metabolic Screening - Screen if on a Neuroleptic Medication - Metabolic screening should include: - Blood Pressure, BMI, Glucose or Hgb A1c, & a - Lipid profile from within the past 365 days. Metabolic Screening Laboratory Tests 10/14 0036 Chemistry Sodium (137 - 145 mmol/L) 143 Potassium (3.5 - 5.1 mmol/L) 4.3 Chloride (98 - 107 mmol/L) 106 Carbon Dioxide (22 - 30 mmol/L) 23 Anion Gap (5 - 16) 14 BUN (7 - 17 mg/dL) 13 Creatinine (0.5 - 1.0 mg/dL) 0.7 Estimated GFR (>60 ml/min) > 60 BUN/Creatinine Ratio (7 - 25 %) 18.6 Glucose (65 - 99 mg/dL) 91 Calcium (8.4 - 10.2 mg/dL) 8.7 Total Bilirubin (0.2 - 1.3 mg/dL) 0.7 AST (14 - 36 U/L) 23 ALT (9 - 52 U/L) 20 Alkaline Phosphatase (<127 U/L) 83 Total Protein (6.3 - 8.2 g/dL) 6.6 Albumin (3.5 - 5.0 g/dL) 4.4 Globulin (1.9 - 4.2 gm/dL) 2.2 Albumin/Globulin Ratio (1.1 - 2.2 %) 2.0 Hematology CBC w Diff NO MAN DIFF REQ WBC (4.8 - 10.8 /CUMM) 6.9 RBC (4.20 - 5.40 /CUMM) 3.95 L Hgb (12.0 - 16.0 G/DL) 13.2 Hct (37 - 47 %) 37.6 MCV (81.0 - 99.0 FL) 95.0 MCH (27.0 - 31.0 PG) 33.5 H MCHC (33.0 - 37.0 G/DL) 35.2 RDW (11.5 - 14.5 %) 13.2 Plt Count (130 - 400 /CUMM) 310 MPV (7.4 - 10.4 FL) 7.0 L Gran % (42.2 - 75.2 %) 53.5 Lymphocytes % (20.5 - 51.1 %) 37.5 Monocytes % (1.7 - 9.3 %) 7.3 Eosinophils % (0 - 5 %) 1.3 Basophils % (0.0 - 2.0 %) 0.4 Absolute Granulocytes (1.4 - 6.5 /CUMM) 3.7 Absolute Lymphocytes (1.2 - 3.4 /CUMM) 2.6 Absolute Monocytes (0.10 - 0.60 /CUMM) 0.5 Absolute Eosinophils (0.0 - 0.7 /CUMM) 0.1 Absolute Basophils (0.0 - 0.2 /CUMM) 0 Toxicology Urine Opiates Screen (>2000 NG/ML) < 100 Methadone Screen (>300 NG/ML) 43 Barbiturate Screen (>200 NG/ML) < 60 Ur Phencyclidine Scrn (>25 NG/ML) < 6.00 Amphetamines Screen (>1000 NG/ML) < 100 U Benzodiazepines Scrn (>200 NG/ML) < 85 Urine Cocaine Screen (>300 NG/ML) < 50 Urine Cannabis Screen (>50 NG/ML) < 5.00 Serum Alcohol (<10 MG/DL) 164.0 Urines Urine Test NEGATIVE Exam and Plan Mental Status Examination Ambulation Status: freely Appearance: dishelved Attitude towards examiner: cooperative Psychomotor activity: no retardation or agitation Behavior: cooperative Quality of speech: nl r/r/s/p Affect: very irritable, non-labile, appropriate Mood: "he didn't call me" Suicidal Ideation: denied current Homicidal Ideation: denied Hallucinations: denied Paranoid/Delusional Material: denied Difficulties with thought organization: no noted Insight: poor Judgment: poor Orientation: a/o x4 Cognition: grossly intact Memory Function: grossly intact Estimate of intellectual functioning: average Assets/Strengths Patient Identified Assets/Strengths: able to communicate Impression/Plan Impression and Plan: Pt with long psych hx now with SI and depression in the setting of interpersonal discord. This presentation is likely c/b and driven by underlying Borderline personality disorder - Include all active medical diagnosis that require tx DSM 5 Diagnosis(es): MDD Borderline PD AUD hx of PTSD - Initial Tx Plan for Active Psych & Medical Conditions Treatment Plan: Continue home meds except increase mirtazapine Would like to increase latuda but pt concerned about sedation - Factors that would help patient function - in a less restrictive setting. Factors: coping skills
[2017-10-16] VITALS (10 sets, daily range): BP systolic 100–120; BP diastolic 60–89
--- NOTE | 2017-10-16 12:24 | CP SOUTH PROGRESS NOTE PSYCH ---
Psych (Inpt) Progress Note Progress Note Include the following elements, when applicable: Involvement in the active treatment of the patient with behavioral observations of the patient and the patient's response to the treatment. Review of the ongoing treatment process in the context of the treatment plan. Indication of how multi-disciplinary staff members are carrying out the treatment plan. Plans for future interventions and recommendations for revision of the treatment plan. Liaison with other physicians/providers. Progress Note: Pt notes feeling "agitated" today as still not spoken to bf. SHe feels that he is responsible for her admission and relapse on alcohol as "he drove me to drink." Sees no personal responsibility in this situation. To be visited by roomate/best friend today. Denies SI or HI. Current Medications Sig/Galo Start time Last Medication Dose Route Stop Time Status Admin Clonazepam 0.5 MG BID 10/14 0941 AC 10/16 PO 10/21 0940 0810 Famotidine 40 MG DAILY 10/14 0942 AC 10/16 PO 0808 Fluticasone 1 SPRAY BID 10/14 2100 AC 10/16 Propionate MELVIN 0807 Folic Acid 1 MG DAILY 10/14 1619 DC 10/16 PO 10/16 0901 0808 Gabapentin 400 MG BID 10/16 2100 AC PO Gabapentin 300 MG Q8 PRN 10/14 1630 AC PO Gabapentin 400 MG DAILY@1500 10/14 1500 DC 10/15 PO 1420 Loratadine 10 MG DAILY 10/14 0943 AC 10/16 PO 0808 Lorazepam 0.5 MG ONCE 10/19 0000 AC PO 10/19 0001 Lorazepam 0.5 MG Q6H 10/18 0000 AC PO 10/18 1801 Lorazepam 0.5 MG ONCE ONE 10/17 1800 AC PO 10/17 1801 Lorazepam 1 MG Q6H 10/17 0000 AC PO 10/17 1201 Lorazepam 1.5 MG Q12H 10/16 0600 AC 10/16 PO 10/16 1801 0655 Lorazepam 1 MG Q12H 10/16 0000 DC 10/15 PO 10/16 1201 2316 Lorazepam 1.5 MG Q6 10/15 0600 DC 10/15 PO 10/15 1801 1758 Lorazepam 2 MG Q2P PRN 10/14 1630 AC PO Lorazepam 1 MG Q2P PRN 10/14 1630 AC PO Lurasidone HCl 40 MG AT BEDTIME 10/14 2153 AC 10/15 PO 2057 Mirtazapine 30 MG AT BEDTIME 10/15 2100 AC 10/15 PO 2057 Multivitamins 1 TAB DAILY 10/14 1619 AC 10/16 PO 807 Ondansetron HCl 4 MG Q6P PRN 10/14 2014 AC PO Sertraline HCl 150 MG DAILY 10/16 0900 AC 10/16 PO 08 Thiamine HCl 100 MG DAILY 10/14 1618 DC 10/16 PO 10/16 0901 0808 Trazodone HCl 50 MG AT BEDTIME NEED.. 10/14 1630 AC PO Laboratory Tests 10/16 10/14 10/14 0620 0225 0036 Chemistry Sodium (137 - 145 mmol/L) 143 Potassium (3.5 - 5.1 mmol/L) 4.3 Chloride (98 - 107 mmol/L) 106 Carbon Dioxide (22 - 30 mmol/L) 23 Anion Gap (5 - 16) 14 BUN (7 - 17 mg/dL) 13 Creatinine (0.5 - 1.0 mg/dL) 0.7 Estimated GFR (>60 ml/min) > 60 BUN/Creatinine Ratio (7 - 25 %) 18.6 Glucose (65 - 99 mg/dL) 91 Hemoglobin A1c (4.2 - 5.8 %) Pending Calcium (8.4 - 10.2 mg/dL) 8.7 Total Bilirubin (0.2 - 1.3 mg/dL) 0.7 AST (14 - 36 U/L) 23 ALT (9 - 52 U/L) 20 Alkaline Phosphatase (<127 U/L) 83 Total Protein (6.3 - 8.2 g/dL) 6.6 Albumin (3.5 - 5.0 g/dL) 4.4 Globulin (1.9 - 4.2 gm/dL) 2.2 Albumin/Globulin Ratio (1.1 - 2.2 %) 2.0 Triglycerides (<150 mg/dL) 356 H Cholesterol (<200 MG/DL) 166 LDL Cholesterol, Calc (65 - 129 mg/dL) 51 L HDL Cholesterol (40 - 60 mg/dL) 43 Cholesterol/HDL Ratio (0.00 - 4.23 %) 4 Vitamin B12 (239 - 931 pg/mL) 424 TSH (0.270 - 4.200 uIU/mL) 4.240 H Hematology CBC w Diff NO MAN DIFF REQ WBC (4.8 - 10.8 /CUMM) 6.9 RBC (4.20 - 5.40 /CUMM) 3.95 L Hgb (12.0 - 16.0 G/DL) 13.2 Hct (37 - 47 %) 37.6 MCV (81.0 - 99.0 FL) 95.0 MCH (27.0 - 31.0 PG) 33.5 H MCHC (33.0 - 37.0 G/DL) 35.2 RDW (11.5 - 14.5 %) 13.2 Plt Count (130 - 400 /CUMM) 310 MPV (7.4 - 10.4 FL) 7.0 L Gran % (42.2 - 75.2 %) 53.5 Lymphocytes % (20.5 - 51.1 %) 37.5 Monocytes % (1.7 - 9.3 %) 7.3 Eosinophils % (0 - 5 %) 1.3 Basophils % (0.0 - 2.0 %) 0.4 Absolute Granulocytes (1.4 - 6.5 /CUMM) 3.7 Absolute Lymphocytes (1.2 - 3.4 /CUMM) 2.6 Absolute Monocytes (0.10 - 0.60 /CUMM) 0.5 Absolute Eosinophils (0.0 - 0.7 /CUMM) 0.1 Absolute Basophils (0.0 - 0.2 /CUMM) 0 Toxicology Urine Opiates Screen (>2000 NG/ML) < 100 Methadone Screen (>300 NG/ML) 43 Barbiturate Screen (>200 NG/ML) < 60 Ur Phencyclidine Scrn (>25 NG/ML) < 6.00 Amphetamines Screen (>1000 NG/ML) < 100 U Benzodiazepines Scrn (>200 NG/ML) < 85 Urine Cocaine Screen (>300 NG/ML) < 50 Urine Cannabis Screen (>50 NG/ML) < 5.00 Serum Alcohol (<10 MG/DL) 164.0 Urines Urine Test NEGATIVE Vital Signs Date Time Temp Pulse Resp B/P B/P Pulse O2 O2 Flow FiO2 Mean Ox Delivery Rate 10/16 1208 72 120/81 10/16 1205 79 120/89 10/16 0754 96.5 89 101/70 10/16 0754 96.5 89 101/70 10/16 0655 66 110/65 10/16 0517 95.5 65 20 100/60 10/16 2031 97.4 90 124/78 10/16 2023 97.4 90 124/78 10/15 1616 95 117/78 10/15 1613 95 11778 MSE General appearance: good hygiene and grooming; Attitude: cooperative; Eye contact: appropriate; Movement: no psychomotor agitation or slowing; Speech: nl fluency, nl rate/rhythm, nl volume, nl prosody; Mood: "agitated" Affect: extremely irritable, flat, appropriate, constricted, non-labile, congruent; Thought process: linear and goal-directed; Thought content: denied SI or HI, no paranoid ideation; Perception: denied hallucinations- auditory, visual, does not appear to be responding to internal stimuli; I/J: limited Pt with long psych hx now with SI and depression in the setting of interpersonal discord. This presentation is likely c/b and driven by underlying Borderline personality disorder. Continue home meds, increased gabapentin to BID at 12pm and 4pm, which is home dose Would like to increase latuda but pt concerned about sedation.
[2017-10-17] VITALS (9 sets, daily range): BP systolic 120–139; BP diastolic 65–87
--- NOTE | 2017-10-17 08:25 | CP SOUTH PROGRESS NOTE PSYCH ---
Psych (Inpt) Progress Note Progress Note I reviewed Dr. Lakhani's notes for the weekend of October 15 and 2017. Treatment team (ELECTRICAL EXPERIMENTAL MECHANIC, RN, OTR/L & Therapy staff, Psychiatrist) discussed the Pt. 's progress, treatment plan, and aftercare plans. Vital Signs: Blood pressure 139/65 mmHg, pulse 85 bpm, temperature 96.9F. MSE: The patient feels that she is ready for discharge. She reported that she had a good weekend. She reported that she has not had any thoughts of suicide or self cutting or self-harm in any way. She reported that her desire is to be able to go back to [facility] intensive outpatient program but she is not sure whether she can go back at this point. She reported that she thinks that her absenteeism problem may have been sold because she is no longer feeling dizzy or having vertigo. The patient was alert and oriented to time, place, and person. Patient reported that her mood is much better. She denied feeling hopeless or worthless or wishing or thinking of suicide. She denied violent thoughts or thoughts of homicide. She denied hallucinations. She denied feeling paranoid and did not show any evidence of delusions during the interview. Was no evidence of cognitive impairments. Assessment: Is a 37-year-old single white female who was admitted because of thoughts of suicide in the setting of interpersonal discord. This presentation is likely c/b and driven by underlying Borderline personality disorder. Treatment plan update Continue same medications I as per Dr. Lakhani's orders from the weekend 10/16 1205 79 120/89 MSE General appearance: good hygiene and grooming; Attitude: cooperative; Eye contact: appropriate; Movement: no psychomotor agitation or slowing; Speech: nl fluency, nl rate/rhythm, nl volume, nl prosody; Mood: "agitated" Affect: extremely irritable, flat, appropriate, constricted, non-labile, congruent; Thought process: linear and goal-directed; Thought content: denied SI or HI, no paranoid ideation; Perception: denied hallucinations- auditory, visual, does not appear to be responding to internal stimuli; I/J: limited Pt with long psych hx now with SI and depression in the setting of interpersonal discord. This presentation is likely c/b and driven by underlying Borderline personality disorder. Continue home meds, increased gabapentin to BID at 12pm and 4pm, which is home dose Would like to increase latuda but pt concerned about sedation.
--- NOTE | 2017-10-17 15:58 | SOCIAL WORKER PROG NOTE PSYCH ---
Social Work Progress Note Progress Note [facility] concurrent auth entered: Member Name Member ID Member Subscriber Name Subscriber ID YAQUELIN HORVATH [id number] 1980 YAQUELIN Orosco YULIET [id number] Pended Authorization # Client Authorization # Type of Request [id number] CONCURRENT Date of Admission/ Start of Services Requested From Submission Date 10/14/2017 10/17/2017 10/17/2017 Level of Service Type of Service Level of Care Type of Care INPATIENT/OC Mental Health Inpatient [facility]patient [facility] - Inpatient Hospital Reason Code P76
--- NOTE | 2017-10-17 18:13 | SOCIAL WORKER PROG NOTE PSYCH ---
Social Work Progress Note Progress Note This inspector automatic typewriter met with patient. She reported that she has been on a "2 week drinking binge" leading to this admission. She stated that she started going to [facility] IOP following discharge from last [facility] inpatient admission, but stopped due to her vertigo. Patient stated that [facility] encouraged her to return once her vertigo was managed. Patient stated that she has also been going to [facility] for medication management to bridge her to the [facility] medication eval. Patient would like to return to [facility] for IOP, but feels she should go to the dual IOP. She stated that they had recommended mental health IOP at the last intake. Patient plans to return home after discharge from [facility]. She refused a family meeting. She denied SI/HI/AH/VH. Patient signed an RICHARD for [facility].
[2017-10-18 07:56] VITALS: BP 103/61
[2017-10-18 08:01] VITALS: BP 103/61
--- NOTE | 2017-10-18 08:04 | CP SOUTH PROGRESS NOTE PSYCH ---
Psych (Inpt) Progress Note Progress Note Treatment team (NORA, RN, OTR/L & Therapy staff, Psychiatrist) discussed the Pt. 's progress, treatment plan, and aftercare plans. Vital Signs: Blood pressure 103/61 mmHg, pulse 88 bpm, temperature 97.6F. Mental Status Examination: The patient was alert and oriented to time, place, and person. Patient reported that her mood is much better. Pt. feels that she is ready for discharge. She reported that she has not had any thoughts of suicide or self-cutting or self- harm in any way. She denied feeling hopeless or worthless or wishing or thinking of suicide. She denied violent thoughts or thoughts of homicide. She denied hallucinations, denied feeling paranoid, and did not show any evidence of delusions during the interview, no evidence of cognitive impairments. Assessment: Citlalli is a 37-year-old Single White Female who was admitted because of thoughts of suicide in the setting of interpersonal discord. This presentation is likely driven by underlying Borderline personality disorder. Since her admission, the patient's showed significant improvement in her mood and is free of thoughts of suicide or self-harm. Pt. reported that she has been ready for discharge since yesterday. [facility] is willing to take her back. Pt. is safe for discharge today Treatment plan update: Discharge home with follow-up at the [facility]'s intensive outpatient program
[2017-10-18] MEDS ORDERED: GABAPENTIN400 M2 PO (11:57)
[2017-10-18] MEDS ORDERED: MIRTAZAPINE30 M2 PO (11:57)
[2017-10-18] MEDS ORDERED: ZOLOFT100 M1 PO (11:57)
[2017-10-18] MEDS ORDERED: FLUTICASONE PRO16 GM NAS (12:00)
--- NOTE | 2017-10-18 12:00 | Patient Discharge Instructions ---
Psych Discharge Inst General Discharge Information Reason for Admission: increased drinking and thoughts of self-harm Psy Discharge Primary Diag+ Disruptive Mood Dysregulation Disorder Psy Discharge Secondary Diag+ Alcohol Dependence Summary Tests/Major Procedures Lab Cholesterol 166 MG/DL 10/16/17 06 Cholesterol/HDL Ratio 4 % 10/16/17 06 HDL Cholesterol 43 mg/dL 10/16/17 0620 Hemoglobin A1c 4.5 % 10/16/17 06 LDL Cholesterol, Calc 51 mg/dL L 10/16/17 0620 Triglycerides 356 mg/dL H 10/16/17619 Studies Pending at DC: None Patient Instructions Contact Information Your Psychiatrist on [facility] was Varun RITCHIE,Peter * If you are experiencing an emergency related to this hospitalization, please call [phone] to contact the treating psychiatrist or the psychiatrist-on- call. * To Request a copy of your medical records, please contact the Medical Records Department at [phone]. * To request results of studies pending at the time of discharge, please call [phone]. * Continue your Medications until directed to stop by your Healthcare provider. General Medication Information Please continue to take your new medications and your continued home medications , unless otherwise indicated on your discharge medication list, or unless directed by your MD or INDUSTRIAL ELECTRICAL TECHNICIAN to stop them. Special Instructions Diet Regular Activity Normal - Tobacco Use Treatment Offered Post DC Medications Offered: Not Applicable Post DC Tobacco Treatment Plan: Not Applicable - EtOH/Drug Use D/O Treatment Offered Post DC Medications Offered: Med Not Indicated for D/O Post DC EtOH/SubAbuse TX Plan: Other SubAbuse/Dual Pgm Metabolic Screening ([X]) Not Applicable, patient not on a neuroleptic. Advance Directives Does the Patient have Medical Advance Directives No/Refused further info Does Pt have Psychiatric Advance Directives? No/Refused further info Does Patient have a Designated Surrogate Decision Maker: No Information About Psychiatric Advance Directives Provided? Refused Discharge Plan Post Hospital Treatment Plan: [facility] IOP
--- NOTE | 2017-10-18 12:30 | DISCHARGE SUMMARY REPORT-PSYCH ---
Visit Information Visit Dates/Diagnosis' Admission Date: 10/14/17 Discharge Date: 10/18/17 Reason for Admission: increased drinking and thoughts of self-harm Psy Discharge Primary Diag: Disruptive Mood Dysregulation Disorder Psy Discharge Secondary Diag: Alcohol Dependence Hospital Course Significant Lab Findings: Lab Cholesterol 166 MG/DL 10/16/17619 Cholesterol/HDL Ratio 4 % 10/16/17619 HDL Cholesterol 43 mg/dL 10/16/17619 Hemoglobin A1c 4.5 % 10/16/17619 LDL Cholesterol, Calc 51 mg/dL L 10/16/17619 Triglycerides 356 mg/dL H 10/16/17619 Course Complications: The patient did not have any complications while she was on the inpatient psychiatric unit. Consultations: The patient had a history and physical examination while she was on the inpatient psychiatric unit. Please refer to the patient's electronic health record for the details of the H&P. Allergies: Coded Allergies: Sulfa (Sulfonamide Antibiotics) (RASH PER PT 09/04/17) aspirin (VOMIT 09/04/17) ciprofloxacin (From CIPRO) (VOMITTING PER PT 09/04/17) dicyclomine (From BENTYL) (MORE STOMACH CRAMPS PER PT 09/04/17) diphenhydramine (From BENADRYL) ("CRAWLING OUT OF SKIN" 09/04/17) esomeprazole (From NEXIUM) (STOMACH CRAMPS 09/04/17) hydromorphone (From DILAUDID) (VOMIT 09/04/17) hyoscyamine (STOMACH CRAMPS/VOMITING PER PT 09/04/17) metronidazole (From FLAGYL) (VOMITING PER PT 09/04/17) oxycodone (From PERCOCET) (VOMIT 09/04/17) pantoprazole (From PROTONIX) (STOMACH CRAMPS 09/04/17) promethazine (From PHENERGAN) ("CRAWLING OUT OF SKIN" 09/04/17) risperidone (From RISPERDAL) (ANAPHYLASIX 09/04/17) Hospital Course/TX Response: 10/15/2017: Dr. Lakhani's initial impression and Plan: Pt with long psych hx now with SI and depression in the setting of interpersonal discord. This presentation is likely c/b and driven by underlying Borderline personality disorder DSM 5 Diagnosis(es): MDD Borderline PD AUD hx of PTSD Treatment Plan: Continue home meds except increase mirtazapine Would like to increase latuda but pt concerned about sedation 10/16/2017: Dr. Lakhani (covering): -Continue home meds, increased gabapentin to BID at 12pm and 4pm, which is home dose Would like to increase latuda but pt concerned about sedation. 10/17/2017: No changes in the patient's medication regimen. 10/18/2017: Mental Status Examination: The patient was alert and oriented to time, place, and person. Patient reported that her mood is much better. Pt. feels that she is ready for discharge. She reported that she has not had any thoughts of suicide or self-cutting or self- harm in any way. She denied feeling hopeless or worthless or wishing or thinking of suicide. She denied violent thoughts or thoughts of homicide. She denied hallucinations, denied feeling paranoid, and did not show any evidence of delusions during the interview, no evidence of cognitive impairments. Assessment: Citlalli is a 37-year-old Single White Female who was admitted because of thoughts of suicide in the setting of interpersonal discord. This presentation is likely driven by underlying Borderline personality disorder. Since her admission, the patient's showed significant improvement in her mood and is free of thoughts of suicide or self-harm. Pt. reported that she has been ready for discharge since yesterday. [facility] is willing to take her back. Pt. is safe for discharge today Treatment plan update: Discharge home with follow-up at the [facility]'s intensive outpatient program Discharge HBIPS - Tobacco Use Treatment Offered Post DC Medications Offered: Not Applicable Post DC Tobacco Treatment Plan: Not Applicable - EtOH/Drug Use D/O Treatment Offered Post DC Medications Offered: Med Not Indicated for D/O Post DC EtOH/SubAbuse TX Plan: Other SubAbuse/Dual Pgm Metabolic Screening - Screen if on a Neuroleptic Medication - Metabolic screening should include: - Blood Pressure, BMI, Glucose or Hgb A1c, & a - Lipid profile from within the past 365 days. Metabolic Screening N/A Discharge Instructions General Discharge Information Multiple Neuroleptics: Not Applicable Discharge Diet Regular Discharge Activity Normal DC Disposition: Home Referrals Ordered Referrals Provider Referral 10/19/17 For Providers: [[facility]] [place] [phone] Patient will utilize walk in hours for Dual IOP intake assessment on 10/19/17. Walk in intake hours: Tuesday-, 10am-5pm Tuesday, 9am-3pm Outpatient Psych - Substance 10/27/17 248/[address] [place], [place] [id number] [facility] Outpatient [address] [place] [address] Intake appointment: October, at 3:00pm with Codi Schneider LCSW Outpatient Psych - Substance 10/28/17 248/[address] [place], [place] [id number] [facility] Outpatient [address] [place] [address] Medication evaluation: Saturday, October 28, 2017, at 1pm with Dr. Watters Prescriptions Stop taking the following medications: Mirtazapine (Mirtazapine) 15 MG TABLET ORAL TAKE AT BEDTIME Qty = 30 Ibuprofen (Ibuprofen) 600 MG TABLET ORAL EVERY 4 HOURS NEEDED as needed for low back and leg pain Qty = 60 Mirtazapine (Remeron) 15 MG TABLET ORAL AT BEDTIME Qty = 30 Gabapentin (Gabapentin) 400 MG CAPSULE ORAL DAILY Qty = 14 Sertraline HCl (Zoloft) 50 MG TABLET ORAL DAILY Qty = 35 Continue taking these medications: Famotidine (Famotidine) 20 MG TABLET 2 Tablet ORAL DAILY Qty = 60 Comments: Last Taken:10/18/17 Time:8:30AM Loratadine (Loratadine) 10 MG TABLET 1 Tablet ORAL DAILY Qty = 30 Comments: Last Taken:10/18/17 Time:8:30AM Lurasidone HCl (Latuda) 40 MG TABLET 1 Tablet ORAL TAKE AT BEDTIME Qty = 30 Comments: Last Taken:10/17/17 Time:10PM Clonazepam (Klonopin) 0.5 MG TABLET 0.5 Milligram ORAL TWICE DAILY Qty = 22 Comments: Last Taken:10/18/17 Time:8:30AM Time:0805 Fluticasone Propionate (Fluticasone Propionate) 50 MCG/ACTUATION SPRAY.SUSP 2 [place] In the nose TWICE DAILY Qty = 1 Comments: Last Taken:10/18/17 Time:8:30AM This prescription has been renewed Start taking the following new medications: Gabapentin (Gabapentin) 400 MG CAPSULE 400 Milligram ORAL 1200,1600 Qty = 60 No Refills Comments: Last Taken:10/18/17 Time:4 PM Mirtazapine (Mirtazapine) 30 MG TABLET 30 Milligram ORAL AT BEDTIME Qty = 30 No Refills Comments: Last Taken:10/17/17 Time:10PM Sertraline HCl (Zoloft) 100 MG TABLET 1.5 Tablet ORAL DAILY Qty = 30 No Refills Comments: Last Taken:10/18/17 Time:8:30AM Studies Pending at Discharge None Copies To: [place], [place]
[2017-10-18 12:36] VITALS: BP 115/75
[2017-10-18 12:39] VITALS: BP 115/75
[2017-10-18 15:49] VITALS: BP 124/77
[2017-10-18 16:41] VITALS: BP 124/77
--- NOTE | 2017-10-18 18:20 | SOCIAL WORKER PROG NOTE PSYCH ---
Social Work Progress Note Progress Note This race and sports book writer met with patient. She stated that she felt ready for discharge today and would like to return to [facility] for Dual IOP. This race and sports book writer informed patient of conversation with Marilyn, table games supervisor at [facility] location this morning. Marilyn confirmed that the patient may return to [facility] via walk in intake assessment. She stated that the patient would need to reschedule the medication evaluation as it was cancelled when she discharged. Furthermore, patient was informed that this race and sports book writer alerted Marilyn to our recommendation for Dual IOP. Marilyn stated that she would make a note of this in the file. Patient thanked this race and sports book writer for the information. She denied SI/HI/AH/VH and maintains that she does not want a family meeting. She stated that she plans to return home upon discharge and that her friend will provide transporation home today as he was planning on visiting. Patient denied access to weapons/guns. She stated that she plans to attend 2-3 AA meetings per and obtain a sponsor. She has highlighted the meetings she can attend in the meeting book. Patient identified a safety plan in which she would talk to her friend, utilize the crisis numbers and warm lines provided upon discharge and also has the [facility] crisis number. Regarding alcohol use, patient stated, "I have no desire to drink." Patient also requested a referral to [facility] for bridge appointments for medication until she is able to have an appointment with a [facility] provider. Patient accepted the appointments as listed below and will utilize [facility] walk in hours tomorrow. [facility] intake hours: Tue-, 10-Tuesday, 9-3 OPS Intake: 10/27/17 at 3pm with Codi Schneider LCSW Medication: 10/28/[address] 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
== END 2017-10-18 18:00 | DRG 753 ==
LOC: ERH 00:19 → ERHI 16:23 → CP SOUTH 16:23 → ENTRNSPT 20:03 → CP SOUTH 20:15 → CMPTRNSPT 20:19 → CP SOUTH 10-17 10:40
PROVIDERS: Emergency Medicine; Student in an Organized Health Care Education/Training Program
DX: F34.81 Disruptive mood dysregulation disorder (principal); F10.10 Alcohol abuse, uncomplicated
CPT/HCPCS: 36415; 80307; 81025; G0480; J1200; J1630; J3101; J3490

== ENCOUNTER 2018-01-17 21:01 | Inpatient (IN) | payer OTHER ==
[~2018-01-17] VITALS: Ht 157.5 cm; Wt 59.0 kg
[~2018-01-17 21:01] MED LIST changes: +MIRTAZAPINE30 M2 PO; +ZOLOFT100 M1 PO
--- NOTE | 2018-01-17 21:49 | ED GENERAL ADULT ---
History of Present Illness General Chief Complaint: Psychiatric Related Complaint Stated Complaint: +SI/+HI Source: patient, friend Exam Limitations: no limitations Vital Signs & Intake/Output Vital Signs & Intake/Output Vital Signs Date Time Temp Pulse Resp B/P B/P Pulse O2 O2 Flow FiO2 Mean Ox Delivery Rate 01/18 1541 98.7 90 18 102/67 99 Room Air 01/18 1338 97.4 90 16 102/64 98 Room Air 01/18 1239 97.8 94 14 97/68 97 Room Air 01/18 0934 98.0 78 18 106/54 98 Room Air 01/18 0642 90 18 99/65 98 Room Air 01/17 2107 98.2 98 17 127/89 98 Room Air Allergies Coded Allergies: Sulfa (Sulfonamide Antibiotics) (RASH PER PT 09/04/17) aspirin (VOMIT 09/04/17) ciprofloxacin (From CIPRO) (VOMITTING PER PT 09/04/17) dicyclomine (From BENTYL) (MORE STOMACH CRAMPS PER PT 09/04/17) diphenhydramine (From BENADRYL) ("CRAWLING OUT OF SKIN" 09/04/17) esomeprazole (From NEXIUM) (STOMACH CRAMPS 09/04/17) hydromorphone (From DILAUDID) (VOMIT 09/04/17) hyoscyamine (STOMACH CRAMPS/VOMITING PER PT 09/04/17) metronidazole (From FLAGYL) (VOMITING PER PT 09/04/17) oxycodone (From PERCOCET) (VOMIT 09/04/17) pantoprazole (From PROTONIX) (STOMACH CRAMPS 09/04/17) promethazine (From PHENERGAN) ("CRAWLING OUT OF SKIN" 09/04/17) risperidone (From RISPERDAL) (ANAPHYLASIX 09/04/17) Triage Note: PT TO ED WITH C/O WORSENING ANXIETY AND DEPRESSION. REPORTS HX OF SAME WITH SELF HARM ONE MONTH AGO. HEALED LACERATION TO LEFT FOREARM OBSERVED. STATES ALSO SEEN FOR PANIC ATTACK AT ANOTHER FACILITY TWO DAYS AGO AND GIVEN DIAZEPAM WITH SOME EFFECT. STATES NOT TAKING MOST OF HER PRESCRIBED MEDS AND HAS NOT GONE TO THERAPY SESSIONS IN SEVERAL MONTHS. DENIES SPECIFIC PLAN AT THIS TIME. DENIES HI/AH/VH. DENIES ETOH OR DRUG USE. Triage Nurses Notes Reviewed? yes : No Patient currently breastfeeds: No HPI: 37-year-old female with past medical history of suicide attempts and depression presents with hypersomnia decreased appetite anhedonia. Seen at another ER 2 days ago however they did not have psychiatric care. Patient states that she is not attending her psychiatric sessions nor is she taking her medications. She presents tonight requesting help. Admits to thoughts of self-harm without a plan. Denies recent alcohol or illicit substance use. (Trae Landry MD) Reconcile Medications Bupropion HCl (Bupropion HCl Sr) 100 MG TABLET.ER 1 TAB PO QAM MENTAL HEALTH (Reported) Famotidine 20 MG TABLET 2 TAB PO DAILY ACID REFLUX (Reported) Fluticasone Propionate 50 MCG/ACTUATION SPRAY.SUSP 2 SPRAY MELVIN BID ALLERGIES Gabapentin 300 MG CAPSULE 1 CAP PO BID ANXIETY (Reported) Loratadine 10 MG TABLET 1 TAB PO DAILY ALLERGIES (Reported) Lurasidone HCl (Latuda) 40 MG TABLET 1 TAB PO QHS DEPRESSION (Jennifer RITCHIE,[facility]) Past History Travel History Traveled to [place] past 21 day No Medical History Any Pertinent Medical History? 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 Hx Contributory? No (Trae Landry MD) Review of Systems Review of Systems Constitutional: Reports: no symptoms, see HPI. EENTM: Reports: no symptoms. Respiratory: Reports: no symptoms. Cardiovascular: Reports: no symptoms. GI: Reports: no symptoms. Genitourinary: Reports: no symptoms. Musculoskeletal: Reports: no symptoms. Skin: Reports: no symptoms. Neurological/Psychological: Reports: no symptoms. Hematologic/Endocrine: Reports: no symptoms. Immunologic/Allergic: Reports: no symptoms. All Other Systems: Reviewed and Negative (Trae Landry MD) Physical Exam Physical Exam General Appearance: well developed/nourished, comfortable Comments: General: Alert, calm, cooperative Head: Normocephalic, atraumatic Eyes: Normal inspection, no nystagmus, EOMI Ears: Normal inspection Nose: Normal inspection Throat: Moist mucosa Neck: Supple, no goiter Heart: Regular rate and rhythm, no murmurs rubs or gallops Lungs: Clear to auscultation bilaterally with good air entry Abdomen: Soft nontender nondistended, normal bowel sounds Chest: Nontender Extremities: Normal range of motion grossly, mild tremors present, no cyanosis clubbing or edema of the upper extremities Neurologic: cranial nerves II through XII grossly intact, speech clear, gait normal Psychiatric: No apparent delusions or hallucinations, no pressured speech or thought blocking Core Measures ACS in differential dx? No CVA/TIA Diagnosis: No Sepsis Present: No Sepsis Focused Exam Completed? No (Trae Landry MD) Progress Differential Diagnoses I considered the following diagnoses in my evaluation of the patient: Psychiatric Plan of Care: Orders Procedure Date/time Status Regular Diet 01/18 D Active Regular Diet 01/18 B Complete Admit to inpatient psych 01/18 1444 Active Patient Data - inpatient psych 01/18 1202 Active Admit to inpatient psych 01/18 1202 Active Continuous Observation Monitor 01/18 0025 Active Vital Signs 01/18 UNK Active Activity/Ambulation 01/18 UNK Active Intake & Output 01/17 215 Active ED CRISIS PSYCH CONSULT 01/17 2146 Active URINE DRUGS OF ABUSE 01/17 2145 Complete URINE 01/17 2145 Complete URINALYSIS 01/17 2145 Complete ETHANOL 01/17 2145 Complete COMPREHENSIVE METABOLIC PANEL 01/17 2145 Complete CBC WITHOUT DIFFERENTIAL 01/17 2145 Complete Current Medications Sig/Galo Start time Last Medication Dose Stop Time Status Admin Mirtazapine 30 MG AT BEDTIME 01/18 2100 AC (Remeron) Ziprasidone 40 MG 1700 01/18 1700 AC (Geodon 40MG Cap) Ondansetron HCl 4 MG ONCE ONE 01/18 1630 UNVr (Zofran) 01/18 1631 Gabapentin 600 MG TID 01/18 1400 AC 01/18 (Neurontin) 1408 Acetaminophen 650 MG Q4P PRN 01/18 1215 AC (Tylenol) Gabapentin 600 MG Q4 HRS NEEDED PRN 01/18 1215 AC (Neurontin) Loratadine 10 MG DAILY 01/18 1205 AC 01/18 (Claritin) 1238 Sertraline HCl 150 MG DAILY 01/18 1204 AC 01/18 (Zoloft) 1238 Fluticasone 2 SPRAY DAILY 01/18 1203 AC 01/18 Propionate 1238 (Flonase) Clonazepam 0.5 MG BID 01/18 1202 AC 01/18 (KlonoPIN) 01/25 1201 1238 Famotidine 40 MG DAILY 01/18 1202 AC 01/18 (Pepcid) 1238 Laboratory Tests 01/17/182153: Urine Opiates Screen < 100, Methadone Screen < 40, Barbiturate Screen < 60, Ur Phencyclidine Scrn < 6.00, Amphetamines Screen 239, U Benzodiazepines Scrn > 800 H, Urine Cocaine Screen < 50, Urine Cannabis Screen < 5.00, Urine Color YEL, Urine Clarity CLDY H, Urine pH 6.0, Ur Specific [place] >= 1.030, Urine Protein NEG, Urine Ketones 15 H, Urine Nitrite NEG, Urine Bilirubin NEG@ICTO, Urine Urobilinogen 0.2, Ur Leukocyte Esterase SMALL H, Ur Microscopic SEDIMENT EXAMINED, Urine RBC RARE, Urine WBC 10-15 H, Ur Epithelial Cells MOD H, Urine Bacteria MOD H, Urine Mucus FEW, Urine Hemoglobin NEG, Urine Glucose NEG, Urine Test NEGATIVE 01/17/182149: Anion Gap 10, Estimated GFR > 60, BUN/Creatinine Ratio 15.0, Glucose 93, Calcium 9.2, Total Bilirubin 0.5, AST 28, ALT 42, Alkaline Phosphatase 50, Total Protein 6.7, Albumin 4.6, Globulin 2.1, Albumin/Globulin Ratio 2.2, CBC w Diff NO MAN DIFF REQ, RBC 4.11 L, MCV 95.8, MCH 33.3 H, MCHC 34.8, RDW 12.5, MPV 6.8 L, Gran % 62.8, Lymphocytes % 26.0, Monocytes % 10.6 H, Eosinophils % 0.3, Basophils % 0.3, Absolute Granulocytes 4.8, Absolute Lymphocytes 2.0, Absolute Monocytes 0.8 H, Absolute Eosinophils 0, Absolute Basophils 0, Serum Alcohol < 10.0 Initial ED EKG: none Hand-Off Endorsed To: Rampal MD,Daksh Endorsed Time: 0710 (Trae Landry MD) Comments: 01/18/18 6958 the patient complains of some nausea. She is on Zofran as needed. She is on Zoloft but she can take 1 dose. We will give the patient Zofran for her nausea. Abdomen is soft and benign. The patient will be admitted to Inpatient Psychiatry per the plan of crisis. (Sami [place] MD) Departure Departure Disposition: STILL A PATIENT Condition: Stable Referrals: Unknown (PCP/Family) Departure Forms: Customer Survey General Discharge Information (Trae Landry MD) Departure Time of Disposition: 1443 Clinical Impression Primary Impression: Hypersomnia Secondary Impressions: Anhedonia, Depression Admission Note Spoke With: Peter Bond MD Documentation of Exam: Documentation of any treatments & extenuating circumstances including Concerns Regarding Discharge (functional status, medication knowledge or non-compliance, living conditions, etc.) that warrant an admission rather than observation: Patient to be admitted for major depression. Limited by the crisis counselor to the psychiatric service. (Sami [place] MD) Critical Care Note Critical Care Note Critical Care Time: non-applicable (Trae Landry MD)
[2018-01-17 22:03] LABS: ABSOLUTE BASOPHIL COUNT 0 /CUMM (0.0-0.2); ABSOLUTE EOSINOPHIL COUNT 0 /CUMM (0.0-0.7); ABSOLUTE GRANULOCYTE CT 4.8 /CUMM (1.4-6.5); ABSOLUTE MONOCYTE COUNT 0.8 /CUMM (0.10-0.60); BASOPHIL % 0.3 % (0.0-2.0); EOSINOPHIL % 0.3 % (0-5); GRANULOCYTE % 62.8 % (42.2-75.2); HEMATOCRIT 39.4 % (37-47); MEAN CORPUSCULAR HGB 33.3 PG (27.0-31.0); MEAN CORPUSCULAR HGB CONC 34.8 G/DL (33.0-37.0); MEAN CORPUSCULAR VOLUME 95.8 FL (81.0-99.0); MEAN PLATELET VOLUME 6.8 FL (7.4-10.4); PLATELET COUNT 395 /CUMM (130-400); RBC DISTRIBUTION WIDTH 12.5 % (11.5-14.5); RED BLOOD CELL CT 4.11 /CUMM (4.20-5.40); WHITE BLOOD CELL COUNT 7.6 /CUMM (4.8-10.8)
[2018-01-18] MEDS ORDERED: GABAPENTIN300 M2 PO (12:02)
[2018-01-18] MEDS ORDERED: BUPROPION HCL100 M3 PO (12:03)
--- NOTE | 2018-01-18 12:38 | ED PSYCH CRISIS CONSULTATION ---
Crisis Consult Basic Assessment Date of Consult: 01/18/18 Responsible Person/Accompanied By: Noman Moses, long-term friend Insurance Authorization: Insurance #1: Insurance name: DORA CAI Phone number: Policy number: [id number] Group number: Authorization number: ED Provider: Patient's ED Provider: Trae Landry MD Primary Care Physician: Patient's PCP: Unknown PCP's Phone Number: Current Psychiatrist: [facility] Chief Complaint: Psychiatric Related Fears self harm Patient's Quote: "i cut myself bad. I'm afraid of what I might do. I'm so scared." Present Illness: Patient is 37 year old, unmarried female who was brought to [facility] by her long-term room mate (not a romantic relationship) after patient had stated that she was very afraid of self-harm, and had stopped going for appointments and stopped eating, partly due to the elimination of some medications by her telescope operator [facility] [place]. Patient states that she has never been so depressed, and states that is unable to sleep or to eat. Patient states that has not left her home for weeks, and feels desperate. Patient states that, while her medications were not working as well as she had hoped, she agrees that it is much worse without any medications. Patient has also recently broken up with her boyfriend of many years, "because he is always on facebook, and doesn't care about my problems". Patient had been to E D 2 days ago and had to have stitches for a cut on left arm. Patient is afraid of doing worse, feeling more depressed and anxious. Patient afraid she will stab herself. Patient is alert and oriented x3. Patient presents with flat affect, and states that has no interest and unable to enjoy anything, including food. Patient reports that she has had numerous inpatient admissions, and feels desperate that no combination has helped sufficiently, but states that she is hoping for stabilization, and would follow-up wherever recommended. Patient's Address: [address] [place] [address] Other Phone Number: Who Do You Live With? Friend Family/Informants Interviewed: Noman Moses, friend Allergies - Coded Allergies: Sulfa (Sulfonamide Antibiotics) (RASH PER PT 04/29/18) aspirin (VOMIT 09/04/17) ciprofloxacin (From CIPRO) (VOMITTING PER PT 09/04/17) dicyclomine (From BENTYL) (MORE STOMACH CRAMPS PER PT 09/04/17) diphenhydramine (From BENADRYL) ("CRAWLING OUT OF SKIN" 09/04/17) esomeprazole (From NEXIUM) (STOMACH CRAMPS 09/04/17) hydromorphone (From DILAUDID) (VOMIT 09/04/17) hyoscyamine (STOMACH CRAMPS/VOMITING PER PT 09/04/17) metronidazole (From FLAGYL) (VOMITING PER PT 09/04/17) oxycodone (From PERCOCET) (VOMIT 09/04/17) pantoprazole (From PROTONIX) (STOMACH CRAMPS 09/04/17) promethazine (From PHENERGAN) ("CRAWLING OUT OF SKIN" 09/04/17) risperidone (From RISPERDAL) (ANAPHYLASIX 09/04/17) Current Medications - Scheduled Medications Bupropion HCl (Bupropion HCl Sr) 100 MG TABLET.ER 1 TAB PO QA MENTAL HEALTH # 30 (Reported) Entered as Reported by Bayron Gongora on 01/18/18 1203 Clonazepam (Klonopin) 0.5 MG TABLET 0.5 MG PO BID ANXIETY #22 TAB Prescribed by Mariano Murphy APRN on 09/13/17 Famotidine 20 MG TABLET 2 TAB PO DAILY ACID REFLUX #60 (Reported) Entered as Reported by Ira Maria on 09/04/17 2336 Fluticasone Propionate 50 MCG/ACTUATION SPRAY.SUSP 2 SPRAY MELVIN BID ALLERGIES # 1 INHA Prescribed by Peter Bond MD on 10/18/17 Gabapentin 300 MG CAPSULE 1 CAP PO BID ANXIETY (Reported) Entered as Reported by Bayron Gongora on 01/18/18 1202 Gabapentin 400 MG CAPSULE 400 MG PO 1200,1600 anxiety #60 CAP Prescribed by Peter Bond MD on 10/18/17 Loratadine 10 MG TABLET 1 TAB PO DAILY ALLERGIES #30 (Reported) Entered as Reported by Ira Maria on 09/04/170 Lurasidone HCl (Latuda) 40 MG TABLET 1 TAB PO QHS DEPRESSION #30 Prescribed by Peter Bond MD on 09/08/17 Mirtazapine 30 MG TABLET 30 MG PO AT BEDTIME depression and anxiety #30 TAB Prescribed by Peter Bond MD on 10/18/17 Sertraline HCl (Zoloft) 100 MG TABLET 1.5 TAB PO DAILY anxiety #30 TAB Prescribed by Peter Bond MD on 10/18/17 Laboratory Results: Laboratory Tests 01/17/182153: Urine Opiates Screen < 100, Methadone Screen < 40, Barbiturate Screen < 60, Ur Phencyclidine Scrn < 6.00, Amphetamines Screen 239, U Benzodiazepines Scrn > 800 H, Urine Cocaine Screen < 50, Urine Cannabis Screen < 5.00, Urine Color YEL, Urine Clarity CLDY H, Urine pH 6.0, Ur Specific [place] >= 1.030, Urine Protein NEG, Urine Ketones 15 H, Urine Nitrite NEG, Urine Bilirubin NEG@ICTO, Urine Urobilinogen 0.2, Ur Leukocyte Esterase SMALL H, Ur Microscopic SEDIMENT EXAMINED, Urine RBC RARE, Urine WBC 10-15 H, Ur Epithelial Cells MOD H, Urine Bacteria MOD H, Urine Mucus FEW, Urine Hemoglobin NEG, Urine Glucose NEG, Urine Test NEGATIVE 01/17/182149: Anion Gap 10, Estimated GFR > 60, BUN/Creatinine Ratio 15.0, Glucose 93, Calcium 9.2, Total Bilirubin 0.5, AST 28, ALT 42, Alkaline Phosphatase 50, Total Protein 6.7, Albumin 4.6, Globulin 2.1, Albumin/Globulin Ratio 2.2, CBC w Diff NO MAN DIFF REQ, RBC 4.11 L, MCV 95.8, MCH 33.3 H, MCHC 34.8, RDW 12.5, MPV 6.8 L, Gran % 62.8, Lymphocytes % 26.0, Monocytes % 10.6 H, Eosinophils % 0.3, Basophils % 0.3, Absolute Granulocytes 4.8, Absolute Lymphocytes 2.0, Absolute Monocytes 0.8 H, Absolute Eosinophils 0, Absolute Basophils 0, Serum Alcohol < 10.0 Past History Past Medical History Neurological: NONE EENT: allergies, rhinitis Cardiovascular: NONE Respiratory: NONE Gastrointestinal: GERD, irritable bowel syndrome Hepatic: NONE Renal: OVERACTIVE BLADDER Musculoskeletal: NONE Psychiatric: anxiety, depression, BORDERLINE PERSONALITY PTSD Endocrine: NONE Blood Disorders: NONE Cancer(s): NONE DISPENSARY ATTENDANT/Reproductive: bacterial vaginitis, HPV Past Surgical History Surgical History: Laparoscopy for scar tissue removal Psychosocial History Strengths/Capabilities: Fair insight; reports motivation to get better and follow treatment recommendations. Physical Limitations (Interventions): None Psychiatric Treatment History Psych Treatment Psychiatric Treatment Yes Inpatient Treatment Yes Outpatient Treatment Yes Location of Treatment [facility] Reason for Treatment Depression and suicidal ideation Dates of Treatment past 5 years Response to Treatment fair-poor Diagnosis by History: Depression Anxiety PTSD Borderline Personality Disorder Substance Use/Abuse History Drug Use/Abuse Substances Used/Abused Yes Substance Used/Abused Alcohol First Use age 28 Last Used weeks ago How much used/taken usually 3 glasses of wine. How often has not been drinking lately Route of use p.o. Substance Abuse Treatment Substance Abuse Treatment Past Substance Abuse [place] No Current Mental Status Mental Status Orientation: Current situation, Person, Place, Situation Affect: Anxious, Depressed, Flat, Sad Speech: Hyper-verbal, Pressured Neuro-vegetative: Appetite Decreased, Energy Decreased, Helpless, Loss of Interest, Sexual Interest Decreased, Sleep Disturbance Appearance Appearance- Dress/Hygiene: disheveled hygiene poor Behaviors Thought Process: Flight of Ideas Thought Content: Entitled, WNL Memory: WNL Insight: Poor SI/HI Risk Assessment Past Suicidal Ideation/Attempts Yes Current Suicidal Ideation/Att Yes Past Homicidal Ideation/Att: No Current Homicidal Ideation/Attempts No Degree of Intent: Self Destructive/No Risk Factors: access to lethal means, chronic/serious med cond., high anxiety/ distress, history of Violence, history of suicide atmpts, SA/MH hospitalized, substance abuse, isolate/no social support, poor impulse control, limited support Lethality Ratin PTSD Checklist PTSD Done? patient declined ED Management Sitter: Yes Restraints: No DSM5/PS Stressors/Medical Prob Diagnosis' (DSM 5, Stressors, Medical): Major Depressive D/O PTSD Generalized Anxiety D/o Borderline Personality D/O History of Alcohol Use D/O Current GAF: 25 Comments: Patient feels hopeless and helpless. Departure Disposition Psych Medical Clearance Date: 01/18/18 Medically Cleared at: 1100 Time Started: 1110 Time Ended: 1205 Psychiatrist Consulted: Ghariabeh Date Disposition Established: 01/18/18 Time Disposition Established: 1230 Plan for Disposition - Modality: Inpatient Psychiatry Facility: [facility] Rationale for Disposition: Patient expressing suicidal ideation with fear of cutting self or stabbing self. Patient fears her depression has worsened and fears consequences to self, in terms of self harm. Type of IP Admission: Voluntary Referrals Unknown (PCP)
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
[2018-01-18 17:53] VITALS: BP 115/74
[2018-01-18 19:52] VITALS: BP 125/82
--- NOTE | 2018-01-18 22:49 | History & Physical ---
General Information and HPI History of Present Illness: Patient is a 37-year-old female whose medical history significant for anxiety disorder, depression, irritable bowel syndrome and posttraumatic stress disorder. Admitted to the inpatient psychiatry service for worsening of depression symptoms and patient's fear of self-harm. Currently being treated for this at the direction of the psychiatry service. She has been evaluated for routine history and physical. Patient complains of worsening abdominal cramping. She reports that she has a flareup of her IBS symptoms when she is anxious. She also reports that her Zoloft dose was increased by the psychiatry service as she believes this also may be contributing to her symptoms. She reports some nausea but denies any vomiting. Reports her symptoms get worse with use of Benadryl. She is requesting Imodium but denies any diarrhea. She reports 1 semi-formed bowel movement earlier on today. I did explain to her that the absence of diarrhea Imodium would not be indicated. She did verbalize understanding. Chest, shortness of breath. Denies palpitations. Denies cough. Denies fever or chills. Denies heat or cold intolerance. Denies any skin rash. Denied headache or blurry vision. Allergies/Medications Allergies: Coded Allergies: Sulfa (Sulfonamide Antibiotics) (RASH PER PT 09/04/17) aspirin (VOMIT 09/04/17) ciprofloxacin (From CIPRO) (VOMITTING PER PT 09/04/17) dicyclomine (From BENTYL) (MORE STOMACH CRAMPS PER PT 09/04/17) diphenhydramine (From BENADRYL) ("CRAWLING OUT OF SKIN" 09/04/17) esomeprazole (From NEXIUM) (STOMACH CRAMPS 09/04/17) hydromorphone (From DILAUDID) (VOMIT 09/04/17) hyoscyamine (STOMACH CRAMPS/VOMITING PER PT 09/04/17) metronidazole (From FLAGYL) (VOMITING PER PT 09/04/17) oxycodone (From PERCOCET) (VOMIT 09/04/17) pantoprazole (From PROTONIX) (STOMACH CRAMPS 09/04/17) promethazine (From PHENERGAN) ("CRAWLING OUT OF SKIN" 09/04/17) risperidone (From RISPERDAL) (ANAPHYLASIX 09/04/17) Home Med list Bupropion HCl (Bupropion HCl Sr) 100 MG TABLET.ER 1 TAB PO QAM MENTAL HEALTH (Reported) Famotidine 20 MG TABLET 2 TAB PO DAILY ACID REFLUX (Reported) Fluticasone Propionate 50 MCG/ACTUATION SPRAY.SUSP 2 SPRAY MELVIN BID ALLERGIES Gabapentin 300 MG CAPSULE 1 CAP PO BID ANXIETY (Reported) Loratadine 10 MG TABLET 1 TAB PO DAILY ALLERGIES (Reported) Lurasidone HCl (Latuda) 40 MG TABLET 1 TAB PO QHS DEPRESSION Past History Travel History Traveled to [place] past 21 day No Medical History Neurological: NONE EENT: allergies, rhinitis Cardiovascular: NONE Respiratory: NONE Gastrointestinal: GERD, irritable bowel syndrome Hepatic: NONE Renal: OVERACTIVE BLADDER Musculoskeletal: NONE Psychiatric: anxiety, depression, BORDERLINE PERSONALITY PTSD Endocrine: NONE Blood Disorders: NONE Cancer(s): NONE HAND ETCHER/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 Psychosocial History Who Do You Live With? self Services at Home: None Primary Language: [place] Citizen ETOH Use: occasional use Illicit Drug Use: denies illicit drug use Functional Ability ADLs Independent: dressing, eating, toileting, bathing. Ambulation: independent IADLs Independent: telephone, transportation, medication admin. Review of Systems Review of Systems Constitutional: Reports: see HPI. Exam & Diagnostic Data Last 24 Hrs of Vital Signs/I&O Vital Signs Date Time Temp Pulse Resp B/P B/P Pulse O2 O2 Flow FiO2 Mean Ox Delivery Rate 01/19 1952 98.3 88 125/82 01/18 1753 97.4 81 115/74 01/18 1541 98.7 90 18 102/67 99 Room Air 01/18 1338 97.4 90 16 102/64 98 Room Air 01/18 1239 97.8 94 14 97/68 97 Room Air 01/18 0934 98.0 78 18 106/54 98 Room Air 01/18 0642 90 18 99/65 98 Room Air Physical Exam General Appearance Alert, Oriented X3, Cooperative, No Acute Distress Skin No Rashes HEENT Atraumatic, PERRLA, EOMI, Mucous Membr. moist/pink Cardiovascular Regular Rate, Normal S1, Normal S2, No Murmurs Lungs Clear to Auscultation, Normal Air Movement Abdomen Normal Bowel Sounds, Soft, No Tenderness, No Masses Neurological Exam Findings: Normal Gait, Normal Speech, Cranial Nerves 3-12 NL Cranial Nerves II through XII: Within normal limits Extremities No Clubbing, No Cyanosis, No Edema Assessment/Plan Assessment: Regarding her irritable bowel syndrome would recommend control of her anxiety as directed by the psychiatry service. Antiemetic therapy with Zofran as needed. I would not recommend Imodium unless she has diarrhea. If her abdominal cramping persists consider consultation with the gastroenterology service. As Ranked By This Provider Problem List: 1. IBS (irritable bowel syndrome) 2. Depression Miscellaneous Miscellaneous Documentation Attending Case Discussed With: Varun RITCHIE,Peter Primary Care Physician: Unknown Patient sees these Specialists None Level of Patient Care: JEANNIE Alvarez
[2018-01-19 08:21] VITALS: BP 113/76
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
--- NOTE | 2018-01-19 17:21 | SOCIAL WORKER PROG NOTE PSYCH ---
Social Work Progress Note Progress Note This policy writer typist met with patient. She stated that she attended and "successfully completed" the IOP at [facility] in [place] following her previous discharge from [facility]. She began the outpatient "[facility]'s [facility]" group, however, did not find it helpful. She stated that the medication prescriber who was treating her at [facility] began to make medication changes, discontinuing the Zoloft and Remeron and starting her on Welbutrin. She stated that she has not been taking her Welbutrin for the last four days as "I just didn't care." She identified a on again/off again relationship as a current significant trigger. She stated that she engaged in self injury, cutting her arm, which required stitches. She denied that this was a suicide attempt. Patient stated that she recently visited her local ER due to "trembling and vomitting" and was prescribed Valium. Patient reported alcohol use of about 1-2 glasses of wine, once per week. Patient denied SI/HI/hallucinations. She is unsure if she would like to return to [facility], however, stated that her prescriber has moved and she would obtain a new psychiatrist. Patient stated that it is very difficult to schedule a medication management appointment and frequently has a long wait in between appointments. Patient is agreeable to returning to an IOP and will inform this policy writer typist if she wishes to return or if she would like to find a new IOP. Patient refused a family meeting at this time, and is agreeable to calling her roommate with this policy writer typist once discharge plans are identified to inform him of the discharge plans.
[2018-01-19 19:42] VITALS: BP 106/74
[2018-01-19 22:25] VITALS: BP 112/74
[2018-01-20 10:38] VITALS: BP 113/69
--- NOTE | 2018-01-20 14:45 | CP SOUTH PROGRESS NOTE PSYCH ---
Psych (Inpt) Progress Note Progress Note Include the following elements, when applicable: Involvement in the active treatment of the patient with behavioral observations of the patient and the patient's response to the treatment. Review of the ongoing treatment process in the context of the treatment plan. Indication of how multi-disciplinary staff members are carrying out the treatment plan. Plans for future interventions and recommendations for revision of the treatment plan. Liaison with other physicians/providers. Progress Note: Case and treatment plan discussed in team meeting. Staff reports that the patient appeared pale, was diaphoretic and nauseated. Blood pressure was down. She vomited. Received Zofran. Does not seem to be doing well with Rufino so I have discontinued it. Refusing to have a family meeting. Patient seen with medical student at 12:17 PM. Patient reports she napped all morning and skipped breakfast. "All I've been doing is sleeping." Reports she threw up a lot last night. She is pleased that she was able to eat more yesterday, however. Plans to follow-up at [facility] for her psychiatric care. Reports mood is kind of depressed at around 8/10. Affect is calm and blunted. Rates anxiety about 5-6/10 and states Klonopin helps. She is concerned how she will be able to continue on Klonopin after discharge and we discussed plan to taper it down next week while she is still on the unit. Feels hopeless but not helpless. Feels worthless and guilty. Denies active suicidal ideation. Has passive suicidal thoughts sometimes. Gives a safety promise for here. Denies homicidal ideation. Denies auditory and visual hallucinations and paranoid ideation. Reports energy is very low but she states she is also not eating either. We have agreed to restart Latuda at 40 mg at bedtime with food. IMPRESSION: Slow progress. Continue present treatment plan. We will plan to reduce Klonopin dose starting early next week. Continues to require inpateint level of care. Prn Zofran is available.
--- NOTE | 2018-01-20 17:00 | SOCIAL WORKER PROG NOTE PSYCH ---
Social Work Progress Note Progress Note This travel writer met with patient. She stated that she had not yet decided which IOP she would like to attend and if she would like to return to [facility]. This travel writer suggested that the patient complete a decision matrix. This travel writer described the exercise and patient expressed interest. This travel writer assisted her in starting the exercise. Patient denied SI/HI/hallucinations.
[2018-01-20 19:50] VITALS: BP 126/61
[2018-01-21 08:05] VITALS: BP 119/68
--- NOTE | 2018-01-21 17:42 | CP SOUTH PROGRESS NOTE PSYCH ---
Psych (Inpt) Progress Note Progress Note Progress Note: This is a 37 year old F with hx of depression, PTSD, Borderline perposnality disorder and alcohol use disorder who presented with worsening depression and suicidal ideation with no plan or thoughts of a method. Today, she feels better. She thinks Remeron helped her appetite and sleep. She denied any struggle with energy level or suicidality. She denied any medication side effect. PEr RN, pt does not engages with other pt. she joined them in community but does not socialize. No SI. MMSE: She is AO3. she was in bed and sill wearing night cloth. Her speech is soft. Thought and linear and logical. Mood "good" and affect is "constricted. No suicidal or homicidal ideation or hallucination.Insight is poor and judgment is fair. Diagnosis: Unspecified depression, rule out bipolar disorder, depressed. PTSD. Alcohol use disorder. History of borderline personality disorder. Current Medications Sig/Galo Start time Last Medication Dose Route Stop Time Status Admin Acetaminophen 650 MG Q4P PRN 01/18 1215 AC PO Clonazepam 0.5 MG BID 01/18 1202 AC 01/21 PO 01/25 1201 0830 Famotidine 40 MG DAILY 01/18 1202 AC 01/21 PO 0827 Fluticasone 2 SPRAY BID 01/21 2100 AC Propionate MELVIN Fluticasone 1 SPRAY BID 01/20 2100 DC 01/21 Propionate MELVIN 0827 Gabapentin 400 MG TID 01/19 1400 AC 01/21 PO 1442 Gabapentin 300 MG Q4 HRS NEEDED PRN 01/19 1345 AC PO Loperamide HCl 4 MG BID PRN 01/21 1445 AC 01/21 PO 1558 Loratadine 10 MG DAILY 01/18 1205 AC 01/21 PO 0827 Lurasidone HCl 40 MG AT BEDTIME 01/20 2100 AC 01/20 PO 2127 Mirtazapine 30 MG AT BEDTIME 01/18 2100 AC 01/20 PO 2127 Ondansetron HCl 4 MG Q8P PRN 01/20 1230 AC PO Sertraline HCl 100 MG DAILY 01/20 0900 AC 01/21 PO 0827 Vital Signs Date Time Temp Pulse Resp B/P B/P Pulse O2 O2 Flow FiO2 Mean Ox Delivery Rate 01/21 08 96.9 66 119/68 01/20 1950 97.7 74 126/61 PT joined community but not socializing. Remeron helped with mood, sleep and appetite. Plan: - Continue Latuda 40mg daily - Continue Neurontin has been ordered at 400 mg 3x/day. - Continue Remeron 30 mg nightly. Zoloft has been reduced to 100 mg daily. - Patient remains on Claritin, Flonase and Pepcid. - Klonopin has been restarted at 0.5 mg twice daily.
[2018-01-21 20:20] VITALS: BP 108/67
[2018-01-22 08:31] VITALS: BP 100/57
--- NOTE | 2018-01-22 13:38 | CP SOUTH PROGRESS NOTE PSYCH ---
Psych (Inpt) Progress Note Progress Note This is a 37 year old F with hx of depression, PTSD, Borderline perposnality disorder and alcohol use disorder who presented with worsening depression and suicidal ideation with no plan or thoughts of a method. Today, pt feels "better" than yesterday. She noted sleeping well through out the night. She denied any suicidal thought. In the morning, she felt tired and took a 2 hour nap. She denied any changes in energy level. She denied any hallucination. She denied any medication side effect. Per RN, Pt slept well. No behavioral issues. No suicidality Current Medications Sig/Galo Start time Last Medication Dose Route Stop Time Status Admin Acetaminophen 650 MG Q4P PRN 01/18 1215 AC PO Clonazepam 0.5 MG BID 01/18 1202 AC 01/22 PO 01/25 1201 0851 Famotidine 40 MG DAILY 01/18 1202 AC 01/22 PO 0849 Fluticasone 2 SPRAY BID 01/21 2100 AC 01/22 Propionate MELVIN 0850 Gabapentin 400 MG TID 01/19 1400 AC 01/22 PO 0849 Gabapentin 300 MG Q4 HRS NEEDED PRN 01/19 1345 AC PO Loperamide HCl 4 MG BID PRN 01/21 1445 AC 01/21 PO 1558 Loratadine 10 MG DAILY 01/18 1205 AC 01/22 PO 0849 Lurasidone HCl 40 MG AT BEDTIME 01/20 2100 AC 01/21 PO 2119 Mirtazapine 30 MG AT BEDTIME 01/18 2100 AC 01/21 PO 2119 Ondansetron HCl 4 MG Q8P PRN 01/20 1230 AC PO Sertraline HCl 100 MG DAILY 01/20 0900 AC 01/22 PO 0849 Vital Signs Date Time Temp Pulse Resp B/P B/P Pulse O2 O2 Flow FiO2 Mean Ox Delivery Rate 01/22 0831 96.7 72 100/57 01/22 2020 97.2 67 108/67 MMSE: She is AO3. She was cooperative and enaged. Her speech is soft. Thought and linear and logical. Mood "good" and affect is "constricted. No suicidal or homicidal ideation or hallucination.Insight is poor and judgment is fair. Diagnosis: Unspecified depression, rule out bipolar disorder, depressed. PTSD. Alcohol use disorder. History of borderline personality disorder. Pt is better. No suicidality or mood symptoms. Plan: - Clonidine 0.1mg TID. Pt wants a lower dose but not today. - Continue Latuda 40mg daily - Continue Neurontin has been ordered at 400 mg 3x/day. - Continue Remeron 30 mg nightly. Zoloft has been reduced to 100 mg daily. - Patient remains on Claritin, Flonase and Pepcid. - Klonopin has been restarted at 0.5 mg twice daily.
[2018-01-22 19:53] VITALS: BP 124/78
[2018-01-23 10:08] VITALS: BP 108/67
--- NOTE | 2018-01-23 14:24 | CP SOUTH PROGRESS NOTE PSYCH ---
Psych (Inpt) Progress Note Progress Note Include the following elements, when applicable: Involvement in the active treatment of the patient with behavioral observations of the patient and the patient's response to the treatment. Review of the ongoing treatment process in the context of the treatment plan. Indication of how multi-disciplinary staff members are carrying out the treatment plan. Plans for future interventions and recommendations for revision of the treatment plan. Liaison with other physicians/providers. Progress Note: Dr. Cagle's notes reviewed. Case and treatment plan discussed in team meeting. Staff reports that the patient is denying suicidal ideation. Slept well but stayed in bed this morning. Complained of irritable bowel syndrome being exacerbated by Zoloft. Showered yesterday. Patient seen at 10:25 AM. She was in group prior to meeting with me in conference room. Reports she just woke up 10 minutes ago and she is unhappy that she was not allowed to get her breakfast because a group is meeting in the kitchen. States she was able to get a fruit cup however. States she is having trouble waking up in the morning. We agreed to start tapering Klonopin down to 0.25 mg 3 times a day. States she no longer feels tremulous and is no longer experiencing vomiting and diarrhea. Appears awake and alert. Reports mood is kind of cranky related to the breakfast issue. Rates sad mood probably 6/10 and anxiety like a 2/10. Feels hopeless, worthless and guilty. Feels helpless at times. Denies active suicidal ideation. Reports fleeting passive suicidal ideation, which she last had last night before bed. She is scared of what is to come. States that breakup with boyfriend eliminated a big stressor. She is able to give a safety promise. Denies homicidal ideation. Denies auditory and visual hallucinations and paranoid ideation. Reports sleep is good but she has trouble getting up at 8 AM when staff wakes up patients. Reports appetite is amazing on Klonopin and Remeron. Reports energy is not what it should be and should be a little bit higher. Tolerating medications well. Refuses to have a meeting with her roommate from home. She would like to go to [facility] in [place] after discharge. IMPRESSION: Slow progress. Continue present treatment plan. We will taper down Klonopin. Anticipate discharge on Tuesday.
--- NOTE | 2018-01-23 15:41 | SOCIAL WORKER PROG NOTE PSYCH ---
Social Work Progress Note Progress Note The services requested require additional review. You will be contacted regarding the status of this request if further information is needed. An authorization decision will be made within the required timeframes and details of that decision may be found under the member's authorization history. Member Name Member ID Member Subscriber Name Subscriber ID YAQUELIN HORVATH [id number] 1980 YAQUELIN AGOSTONE [id number] Pended Authorization # Client Authorization # Type of Request [id number] CONCURRENT Date of Admission/ Start of Services Requested From Submission Date 01/18/2018 01/23/2018 01/23/2018 Level of Service Type of Service Level of Care Type of Care INPATIENT/HLOC Mental Health Inpatient Inpatient [facility] - Inpatient Hospital Reason Code P76 Provider Name & Address Provider ID Provider Alternate ID NPI # for Authorization ARTURO ARIAS [id number] [address] [place] [id number]
--- NOTE | 2018-01-23 17:45 | SOCIAL WORKER PROG NOTE PSYCH ---
Social Work Progress Note Progress Note This service writer advisor met with patient. She stated that she completed the decision matrix this weekend and decided that she would like to go to [facility] in [place] as "I would like to stay close to home." Patient signed an RICHARD for [facility]. Patient denied SI/HI/hallucinations and is agreeable to an anticipated discharge of 01/25/18. She stated that her roommate may also be able to provide transportation home on that day. Patient asked this service writer advisor to inquire about the wait time for a medication provider at [facility] and schedule a bridge appointment with OPS if needed.
[2018-01-23 19:49] VITALS: BP 111/70
[2018-01-24 08:05] VITALS: BP 114/67
--- NOTE | 2018-01-24 11:31 | SOCIAL WORKER PROG NOTE PSYCH ---
Ayesha Sorensen 01/24/18 1124: Social Work Progress Note Progress Note Psychiatric Community Health Worker Note Per request of Any Deleon LCSW, called [facility]([phone]) and spoke with Catie who stated the IOP walk in hours are Tuesday-Tuesday from 10:00am-3:00pm and the med. appt varies on the patients needs that is assessed during the intake process; there is no information to provide as far as how long the med appt wait is. Based on this information, a bridge appt has been scheduled through [facility] with OPS([phone]) for 02.09.18 at 10:30am with Dr. Yost. Ayesha "Dayami" Edu Psychiatric Community Health Worker
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
[2018-01-24] MEDS ORDERED: GABAPENTIN400 M2 PO (14:18)
[2018-01-24] MEDS ORDERED: FLUTICASONE PRO16 GM NAS (14:18)
[2018-01-24] MEDS ORDERED: MIRTAZAPINE30 M2 PO (14:18)
[2018-01-24] MEDS ORDERED: LATUDA40 M1 PO (14:18)
[2018-01-24] MEDS ORDERED: LORATADINE10 M1 PO (14:18)
[2018-01-24] MEDS ORDERED: ZOLOFT100 M1 PO (14:18)
[2018-01-24] MEDS ORDERED: FAMOTIDINE20 M1 PO (14:18)
[2018-01-24] MEDS ORDERED: KLONOPIN0.5 M1 PO (14:18)
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
[2018-01-24 20:05] VITALS: BP 124/74
[2018-01-25 07:55] VITALS: BP 114/76
--- NOTE | 2018-01-25 09:05 | CP SOUTH PROGRESS NOTE PSYCH ---
Psych (Inpt) Progress Note Progress Note Include the following elements, when applicable: Involvement in the active treatment of the patient with behavioral observations of the patient and the patient's response to the treatment. Review of the ongoing treatment process in the context of the treatment plan. Indication of how multi-disciplinary staff members are carrying out the treatment plan. Plans for future interventions and recommendations for revision of the treatment plan. Liaison with other physicians/providers. Progress Note: SUBJECTIVE: Patient states she is feeling much better today than she did at admission. Reports eating and sleeping well. Reports mild IBS symptoms but not particularly bothersome. No SI/HI/AVH/SIB. Denies side effects to medications. No abnormal movements reported. Feels ready for discharge with plan to be picked up her room in between 2 and 5 PM today with take home Klonopin 0.25 mg for tonight and tomorrow morning. Patient reported that she needs to completely stop drinking and rehearsed drink refusals several times to increase her repertoire of affective hoping strategies for drinking. Psychoeducation provided. Patient states she is having some hair loss (TSH 0.9), states she will speak to her GED TEACHER for follow-up. Patient reports that she has appointment at [facility] outpatient with Dr. Yost on February 09 for bridging med appointment while she is in [facility]. Patient expresses understanding and agreement with plan. OBJECTIVE: Patient seen socializing and unit, making phone calls. Per nursing, pt did well overnight without any acute events. Pt remained in behavioral control, adherent with staff instructions and medications. Vital signs stable. Current Medications Sig/Galo Start time Last Medication Dose Route Stop Time Status Admin Acetaminophen 650 MG Q4P PRN 01/18 1215 AC PO Clonazepam 0.25 MG BID 01/25 0900 AC 01/25 PO 0809 Clonazepam 0.25 MG TID 01/23 1400 DC 01/24 PO 01/24 2355 2107 Famotidine 40 MG DAILY 01/18 1202 AC 01/25 PO 0808 Fluticasone 2 SPRAY BID 01/21 2100 AC 01/25 Propionate MELVIN 0811 Gabapentin 400 MG TID 01/19 1400 AC 01/25 PO 0808 Gabapentin 300 MG Q4 HRS NEEDED PRN 01/19 1345 AC PO Loperamide HCl 4 MG BID PRN 01/21 1445 AC 01/21 PO 1558 Loratadine 10 MG DAILY 01/18 1205 AC 01/25 PO 08 Lurasidone HCl 40 MG AT BEDTIME 01/20 2100 AC 01/24 PO 2106 Mirtazapine 30 MG AT BEDTIME 01/18 2100 AC 01/24 PO 2107 Ondansetron HCl 4 MG Q8P PRN 01/20 1230 AC PO Sertraline HCl 100 MG DAILY 01/20 0900 AC 01/25 PO 0808 Vital Signs Date Time Temp Pulse Resp B/P B/P Pulse O2 O2 Flow FiO2 Mean Ox Delivery Rate 01/25 755 96.6 76 114/76 01/24 2005 97.5 92 124/74 MSE: GENERAL: Alert and oriented x3, good eye contact, well-groomed, no apparent distress SPEECH: Moderate rate and volume, normal prosody, fluent MOTOR: No tics, tremors, stereotypy, or abnormal movements MOOD: "Better." AFFECT: Calm, congruent, pleasant, appreciative, mood congruent, good range, non-labile, well related THOUGHT PROCESS: Logical, linear and goal-directed THOUGHT CONTENT: No SI/HI/AVH/SIB, no apparent grandiosity, paranoia, delusions , obsessions, ruminations COGNITION: No apparent deficit in attention, memory or concentration JUDGMENT: good INSIGHT: Good ASSESSMENT: 37 yo F with h/o depression, PTSD, AUD, titrating off klonopin, feeling improved, with dispo plan in place and awaiting discharge this afternoon. PLAN: -maintain safety, vs tid, q15min checks -per dr Jam dc with klonopin 0.5 mg (take 0.25 this evening, and 0.25 tomorrow am and stop). Please reiterate instruction with pt at nh -nh home, pickup planned between 2-5pm with [facility] IOP in [place] and OP for bridging meds with Dr Yost on Feb 09, until IOP can see pt for med mgmt -Psychoeducation provided, "drink refusals" rehearsed
--- NOTE | 2018-01-25 16:39 | SOCIAL WORKER PROG NOTE PSYCH ---
Social Work Progress Note Progress Note This senior grant writer met with patient. She stated that he will be providing transportation home by her roommate after he leaves work today. She denied SI/ HI/hallucinations. She identified a safety plan to "talk with her friend, Dori, her neighbor, Candace" and use the crisis numbers and warm lines. She was also provided with the safety plan template, which she stated that she would work on and then share with her roommate after returning home today. Patient stated that she feels safe discharging today. She denied any access to firearms /guns. Patient accepted the medication bridge appointment with Dr. Yost on 02/09/18 at 10:30am. She will attend the walk in hours for [facility] tomorrow between 10am and 3pm in interest of starting the dual IOP.
--- NOTE | 2018-01-25 17:00 | SOCIAL WORKER PROG NOTE PSYCH ---
Ayesha Sorensen 01/25/18 1659: Social Work Progress Note Faxed Referral(s) Referred To: OPS Transition of Care Documents sent: Health Summary Faxed to: [facility] Fax #: [phone] Faxed by: Dayami Date faxed: 01/25/18 Time Faxed: [phone] Comment: Ayesha Sorensen (Tish)-Psychiatric CHW
--- NOTE | 2018-01-25 17:02 | SOCIAL WORKER PROG NOTE PSYCH ---
Ayesha Sorensen 01/25/18 1701: Social Work Progress Note Faxed Referral(s) Referred To: [facility] Dual IOP Transition of Care Documents sent: Health Summary Faxed to: [facility] Fax #: [phone] Faxed by: Dayami Date faxed: 01/25/18 Time Faxed: [phone] Comment: Ayesha Sorensen (Tish)-Psychiatric CHW
--- NOTE | 2018-01-26 14:48 | SOCIAL WORKER PROG NOTE PSYCH ---
Social Work Progress Note Progress Note Psychiatric Community Health Worker Note Determination Status: DISCHARGE COMPLETED Thank you. You have completed your discharge for this episode of care. Member Name Member ID Member Subscriber Name Subscriber ID YAQUELIN HORVATH [id number] YAQUELIN A YULIET [id number] Related Authorization # Related Client Authorization # Discharge # Discharge Date [id number] 01/25/2018 Level of Service Type of Service Level Of Care Type of Care IP - INPATIENT/HLOC P - MENTAL HEALTH I - INPATIENT CIP - INPATIENT HOSPITAL - INPATIENT HOSPITAL Provider Name & Address Provider ID Provider Alternate ID AYLEEN JD [id number] [address] [place] [phone]
--- NOTE | 2018-01-26 16:00 | DISCHARGE SUMMARY REPORT-PSYCH ---
Visit Information Visit Dates/Diagnosis' Admission Date: 01/18/18 Discharge Date: 01/25/18 Reason for Admission: Cut left forearm seriously a few weeks ago. Profound depression with poor appetite, hypersomnia and anhedonia. Psy Discharge Primary Diag: Unspecified depression Psy Discharge Secondary Diag: R/o unspecified bipolar disorder, depressed PTSD Alcohol use disorder Hx borderline pers d/o Rhinitis GERD IBS Hx overactive bladder Hospital Course Significant Lab Findings: Lab ALT 42 U/L 01/17/18 2150 AST 28 U/L 01/17/18 2150 BUN 12 mg/dL 01/17/18 2150 Carbon Dioxide 28 mmol/L 01/17/18 2150 Chloride 100 mmol/L 01/17/18 2150 Creatinine 0.8 mg/dL 01/17/18 215 Estimated GFR > 60 ml/min 01/17/18 215 Glucose 93 mg/dL 01/17/18 2150 Potassium 3.9 mmol/L 01/17/18 2150 Sodium 137 mmol/L 01/17/18 2150 TSH &T3 &Free T4 Intrp 0.970 uIU/mL 01/17/18 2150 Absolute Monocytes 0.8 /CUMM H 01/17/18 2150 Hct 39.4 % 01/17/18 2150 Hgb 13.7 G/DL 01/17/18 2150 MCH 33.3 PG H 01/17/18 2150 MPV 6.8 FL L 01/17/18 2150 Monocytes % 10.6 % H 01/17/18 2150 Plt Count 395 /CUMM 01/17/18 2150 RBC 4.11 /CUMM L 01/17/18 2150 WBC 7.6 /CUMM 01/17/18 2150 Serum Alcohol < 10.0 MG/DL 01/17/18 2150 U Benzodiazepines Scrn > 800 NG/ML H 01/17/18 2154 Ur Epithelial Cells MOD H 01/17/18 2154 Ur Leukocyte Esterase SMALL H 01/17/18 2154 Ur Microscopic SEDIMENT EXAMINED 01/17/18 2154 Urine Bacteria MOD H 01/17/18 2154 Urine Clarity CLDY H 01/17/18 2154 Urine Ketones 15 H 01/17/18 2154 Urine Mucus FEW 01/17/18 2154 Urine Test NEGATIVE 01/17/18 2154 Urine RBC RARE /HPF 01/17/182153 Urine WBC 10-15 /HPF H 01/17/182153 EKG 01/19/18 showed sinus rhythm @ 54, no prior ECG, normal ECG, QT 424, QTc 402. Course Complications: None. Consultations: The patient was seen by Dr. Mckenna for admission H&P. Per his note of 01/18/18, "Assessment: Regarding her irritable bowel syndrome would recommend control of her anxiety as directed by the psychiatry service. Antiemetic therapy with Zofran as needed. I would not recommend Imodium unless she has diarrhea. If her abdominal cramping persists consider consultation with the gastroenterology service." Allergies: Coded Allergies: Sulfa (Sulfonamide Antibiotics) (RASH PER PT 09/04/17) aspirin (VOMIT 09/04/17) ciprofloxacin (From CIPRO) (VOMITTING PER PT 09/04/17) dicyclomine (From BENTYL) (MORE STOMACH CRAMPS PER PT 09/04/17) diphenhydramine (From BENADRYL) ("CRAWLING OUT OF SKIN" 09/04/17) esomeprazole (From NEXIUM) (STOMACH CRAMPS 09/04/17) hydromorphone (From DILAUDID) (VOMIT 09/04/17) hyoscyamine (STOMACH CRAMPS/VOMITING PER PT 09/04/17) metronidazole (From FLAGYL) (VOMITING PER PT 09/04/17) oxycodone (From PERCOCET) (VOMIT 09/04/17) pantoprazole (From PROTONIX) (STOMACH CRAMPS 09/04/17) promethazine (From PHENERGAN) ("CRAWLING OUT OF SKIN" 09/04/17) risperidone (From RISPERDAL) (ANAPHYLASIX 09/04/17) Hospital Course/TX Response: The patient was monitored on the unit for safety and mood disturbance. She participated in multi-modal treatments on the unit. The patient was off of most of her psychiatric medications prior to admission and these were restarted. Geodon substituted briefly for Latuda, but she did not tolerate Geodon well, and Latuda was restarted. Patient was treated with Klonopin and it is being tapered completely to off. Mood and affect have improved. Dr. Watters's Progress note from date of discharge, 01/25/18: "SUBJECTIVE: Patient states she is feeling much better today than she did at admission. Reports eating and sleeping well. Reports mild IBS symptoms but not particularly bothersome. No SI/HI/AVH/SIB. Denies side effects to medications. No abnormal movements reported. Feels ready for discharge with plan to be picked up her room in between 2 and 5 PM today with take home Klonopin 0.25 mg for tonight and tomorrow morning. Patient reported that she needs to completely stop drinking and rehearsed drink refusals several times to increase her repertoire of affective hoping strategies for drinking. Psychoeducation provided. Patient states she is having some hair loss (TSH 0.9), states she will speak to her EMERGENCY ROOM ORDERLY for follow-up. Patient reports that she has appointment at [facility] outpatient with Dr. Yost on February 09 for bridging med appointment while she is in [facility]. Patient expresses understanding and agreement with plan. OBJECTIVE: Patient seen socializing and unit, making phone calls. Per nursing, pt did well overnight without any acute events. Pt remained in behavioral control, adherent with staff instructions and medications. Vital signs stable. Current Medications Sig/Galo Start time Last Medication Dose Route Stop Time Status Admin Acetaminophen 650 MG Q4P PRN 01/18 1215 AC PO Clonazepam 0.25 MG BID 01/25 0900 AC 01/25 PO 0809 Clonazepam 0.25 MG TID 01/23 1400 DC 01/24 PO 01/24 2355 2107 Famotidine 40 MG DAILY 01/18 1202 AC 01/25 PO 0808 Fluticasone 2 SPRAY BID 01/21 2100 AC 01/25 Propionate MELVIN 0811 Gabapentin 400 MG TID 01/19 1400 AC 01/25 PO 0808 Gabapentin 300 MG Q4 HRS NEEDED PRN 01/19 1345 AC PO Loperamide HCl 4 MG BID PRN 01/21 1445 AC 01/21 PO 1558 Loratadine 10 MG DAILY 01/18 1205 AC 01/25 PO 0808 Lurasidone HCl 40 MG AT BEDTIME 01/20 2100 AC 01/24 PO 2107 Mirtazapine 30 MG AT BEDTIME 01/18 2100 AC 01/24 PO 2108 Ondansetron HCl 4 MG Q8P PRN 01/20 1230 AC PO Sertraline HCl 100 MG DAILY 09/14 0900 AC 01/25 PO 0808 Vital Signs Date Time Temp Pulse Resp B/P B/P Pulse O2 O2 Flow FiO2 Mean Ox Delivery Rate 01/25 755 96.6 76 114/76 01/24 2005 97.5 92 124/74 MSE: GENERAL: Alert and oriented x3, good eye contact, well-groomed, no apparent distress SPEECH: Moderate rate and volume, normal prosody, fluent MOTOR: No tics, tremors, stereotypy, or abnormal movements MOOD: "Better." AFFECT: Calm, congruent, pleasant, appreciative, mood congruent, good range, non-labile, well related THOUGHT PROCESS: Logical, linear and goal-directed THOUGHT CONTENT: No SI/HI/AVH/SIB, no apparent grandiosity, paranoia, delusions , obsessions, ruminations COGNITION: No apparent deficit in attention, memory or concentration JUDGMENT: good INSIGHT: Good ASSESSMENT: 37 yo F with h/o depression, PTSD, AUD, titrating off klonopin, feeling improved, with dispo plan in place and awaiting discharge this afternoon. PLAN: -maintain safety, vs tid, q15min checks -per dr Polk, sharon with klonopin 0.5 mg (take 0.25 this evening, and 0.25 tomorrow am and stop). Please reiterate instruction with pt at dc -dc home, pickup planned between 2-5pm with roommate -[facility] in [place] and OP for bridging meds with Dr Yost on Feb 09, until IOP can see pt for med mgmt -Psychoeducation provided, "drink refusals" rehearsed" Discharge HBIPS - Tobacco Use Treatment Offered Post DC Medications Offered: Not Applicable Post DC Tobacco Treatment Plan: Not Applicable - EtOH/Drug Use D/O Treatment Offered Post DC Medications Offered: Med Not Indicated for D/O Post DC EtOH/SubAbuse [place] Plan: Other SubAbuse/Dual Pgm ([facility]) Program Appt Date: 01/26/18 Program Appt Time: 1000 Metabolic Screening - Screen if on a Neuroleptic Medication - Metabolic screening should include: - Blood Pressure, BMI, Glucose or Hgb A1c, & a - Lipid profile from within the past 365 days. Metabolic Screening () Not Applicable, patient not on a neuroleptic. OR () Patient on a neuroleptic(s) . Enter below results for Hemoglobin A1C, and lipid panel if obtained during the last 365 days. BMI: 23.800 Blood Pressure: 114/76 Laboratory Results From [place] EHR (If applicable): [x] Lab Cholesterol 166 MG/DL 10/16/17619 Cholesterol/HDL Ratio 4 % 10/16/17619 HDL Cholesterol 43 mg/dL 10/16/17 06 Hemoglobin A1c 4.5 % 10/16/17619 LDL Cholesterol, Calc 51 mg/dL L 10/16/17619 Triglycerides 356 mg/dL H 10/16/17619 Discharge Instructions General Discharge Information Multiple Neuroleptics: ([x]) Not Applicable OR Document below three failed attempts at monotherapy, or a plan to taper to monotherapy, or augmentation of Clozapine. () Discharge Diet Regular Discharge Activity Normal DC Disposition: Returning to home and roommate. Referrals Ordered Referrals Provider Referral 01/26/18 For Providers: [[facility]] For Groups: [Intensive Outpatient (IOP)] [address] [phone] Patient will utilize walk in hours for an assessment in interest of dual IOP on 01/26/18 between 10am and 3pm. Walk in hours: Tuesday-Tuesday from 10am to 3pm Outpatient Psych - Substance 02/09/18 [address] [place] [id number] [facility] Outpatient [address] [place] [address] Medication Evaluation (bridge appointment): , 02/09/18, at 10:30am with Dr. Yost Prescriptions Stop taking the following medications: Gabapentin (Gabapentin) 300 MG CAPSULE ORAL TWICE DAILY Bupropion HCl (Bupropion HCl Sr) 100 MG TABLET.ER ORAL Every Morning Qty = 30 Continue taking these medications: Loratadine (Loratadine) 10 MG TABLET 1 Tablet ORAL DAILY Qty = 14 Comments: Last Taken:01/25/18 Time:8AM This prescription has been renewed Famotidine (Famotidine) 20 MG TABLET 2 Tablet ORAL DAILY Qty = 28 Comments: Last Taken:01/25/18 Time:8AM This prescription has been renewed Fluticasone Propionate (Fluticasone Propionate) 50 MCG/ACTUATION SPRAY.SUSP 2 [place] In the nose TWICE DAILY Qty = 1 Comments: Last Taken:01/25/18 Time:8AM This prescription has been renewed Start taking the following new medications: Gabapentin (Gabapentin) 400 MG CAPSULE 1 Capsule ORAL THREE TIMES DAILY Qty = 42 No Refills Comments: Last Taken:01/25/18 Time:1PM Mirtazapine (Mirtazapine) 30 MG TABLET 1 Tablet ORAL AT BEDTIME Qty = 14 No Refills Comments: Last Taken:01/24/18 Time:9PM Sertraline HCl (Zoloft) 100 MG TABLET 1 Tablet ORAL DAILY Qty = 14 No Refills Comments: Last Taken:01/25/18 Time:8AM Clonazepam (Klonopin) 0.5 MG TABLET 0.5 Tablet ORAL SEE INSTRUCTIONS Qty = 1 No Refills Instructions: Take 1/2 tab (0.25 mg) on 01/25/18 PM and take 1/2 tab (0.25 mg) on 01/26/18 AM then stop. Comments: Last Taken:01/25/18 Time:8AM The following medications have been changed: Old: Lurasidone HCl (Latuda) 40 MG TABLET 1 Tablet ORAL TAKE AT BEDTIME Qty = 30 New: Lurasidone HCl (Latuda) 40 MG TABLET 1 Tablet ORAL TAKE AT BEDTIME Qty = 14 Instructions: take with food Comments: Last Taken:01/24/18 Time:9PM Other Inst/Recommendations Stay away from alcohol. Please see PCP about labs, especially high lipids. Studies Pending at Discharge None. Copies To: POLLO YOST MD; [facility] [place]
== END 2018-01-25 17:53 | DRG 754 ==
LOC: ERH 21:01 → ERHI 01-18 14:44 → CP SOUTH 01-18 14:44 → ENTRNSPT 01-18 17:26 → EDTRNSPT 01-18 17:33 → EDTRNSPTSTS 01-18 17:33 → CP SOUTH 01-18 17:36 → CMPTRNSPT 01-18 17:58 → CP SOUTH 01-19 11:29
PROVIDERS: Emergency Medicine
DX: F32.9 Major depressive disorder, single episode, unspecified (principal); F43.10 Post-traumatic stress disorder, unspecified; F10.10 Alcohol abuse, uncomplicated; F60.3 Borderline personality disorder; J31.0 Chronic rhinitis
CPT/HCPCS: 80307; 81001; 81025; 93005; 93010; G0480; J3101